=== PATIENT | female | born 1950 | race Caucasian/White ===

== ENCOUNTER 2017-03-23 11:29 | Inpatient (IN) | payer BC, MEDICARE, OTHER ==
[2017-03-23] MEDS ORDERED: SODIUM CHLORIDE 0.9% 1,000 ML IV STA (11:52)
[2017-03-23] MEDS ORDERED: LABETALOL 5 MG/ML VIAL MDV IVP STA ×2 (11:52→12:40)
[2017-03-23] MEDS ORDERED: SODIUM CHLORIDE 0.9% 500 ML IV STA (11:52)
--- NOTE | 2017-03-23 12:08 | ED ---
General Adult HPI - General Chief complaint: Neuro Symptoms/Deficit Stated complaint: POSS CVA, Hx STROKE Time Seen by Provider: 03/23/17 11:51 Source: patient, RN notes reviewed, old records reviewed Mode of arrival: wheelchair Limitations: no limitations - History of Present Illness Initial comments: This is a 66-year-old female ER for evaluation of slurred speech, right arm weakness. Patient has history of high blood pressure, patient is supposedly taking aspirin but does not. History of TIA, CVA which has no neurological deficit. Patient states symptoms occurred while doing some work earlier today. He did resolve upon arrival to emergency room. Patient does admit to being noncompliant with her medications as of late. At this time patient's a symptomatic - Related Data Home Medications Medication Instructions Recorded Confirmed No Known Home Medications [No 03/23/17 03/23/17 Known Home Medications] Allergies Allergy/AdvReac Type Severity Reaction Status Date / Time ibuprofen [From Motrin] Allergy Swelling Verified 03/23/17 12:12 Review of Systems ROS Statement: Those systems with pertinent positive or pertinent negative responses have been documented in the HPI. ROS Other: All systems not noted in ROS Statement are negative. Past Medical History Past Medical History: Coronary Artery Disease (CAD), CVA/TIA, Hyperlipidemia, Hypertension Additional Past Medical History / Comment(s): CVA 2016 History of Any Multi-Drug Resistant Organisms: None Reported Past Surgical History: No Surgical Hx Reported Past Psychological History: No Psychological Hx Reported Smoking Status: Former smoker Past Alcohol Use History: Occasional Past Drug Use History: None Reported - Past Family History Mother Family Medical History: Congestive Heart Failure (CHF), Diabetes Mellitus, Hypertension Father History Unknown: Yes General Exam - General Exam Comments Initial Comments: NIH of 0 Limitations: no limitations General appearance: alert, in no apparent distress Head exam: Present: atraumatic, normocephalic, normal inspection Eye exam: Present: normal appearance, PERRL, EOMI. Absent: scleral icterus, conjunctival injection, periorbital swelling ENT exam: Present: normal exam, mucous membranes moist Neck exam: Present: normal inspection. Absent: tenderness, meningismus, lymphadenopathy Respiratory exam: Present: normal lung sounds bilaterally. Absent: respiratory distress, wheezes, rales, rhonchi, stridor Cardiovascular Exam: Present: regular rate, normal rhythm, normal heart sounds. Absent: systolic murmur, diastolic murmur, rubs, gallop, clicks GI/Abdominal exam: Present: soft, normal bowel sounds. Absent: distended, tenderness, guarding, rebound, rigid Extremities exam: Present: normal inspection, full ROM, normal capillary refill. Absent: tenderness, pedal edema, joint swelling, calf tenderness Back exam: Present: normal inspection Neurological exam: Present: alert, oriented X3, CN II-XII intact Psychiatric exam: Present: normal affect, normal mood Skin exam: Present: warm, dry, intact, normal color. Absent: rash Course Vital Signs 03/23/17 03/23/17 03/23/17 11:36 12:02 12:43 Temperature 97.4 F L Pulse Rate 93 79 Respiratory 18 18 Rate Blood Pressure 219/100 229/105 198/91 O2 Sat by Pulse 96 99 Oximetry 03/23/17 03/23/17 13:41 14:20 Temperature Pulse Rate 74 67 Respiratory 18 16 Rate Blood Pressure 162/76 159/77 O2 Sat by Pulse 94 L 93 L Oximetry - Reevaluation(s) Reevaluation #1: 03/23/17 14:43 Patient had recurrent episode of slurred speech here in the ER EKG Findings - EKG Comments: EKG Findings:: EKG shows normal sinus rhythm rate of 78, MO 144, QRS 100, QTC 433 Medical Decision Making - Medical Decision Making 66 female ER for evaluation of slurred speech, right hand weakness. Patient will be admitted for nerve neurological evaluation, blood pressure control, evaluation by neurology - Lab Data Result diagrams: 03/23/17 11:50 03/23/17 11:50 Lab Results 03/23/17 03/23/17 03/23/17 Range/Units 11:50 11:50 11:50 WBC 6.9 (3.8-10.6) k/uL RBC 3.78 L (3.80-5.40) m/uL Hgb 12.6 (11.4-16.0) gm/dL Hct 38.1 (34.0-46.0) % MCV 100.6 H (80.0-100.0) fL MCH 33.2 (25.0-35.0) pg MCHC 33.0 (31.0-37.0) g/dL RDW 14.1 (11.5-15.5) % Plt Count 371 (150-450) k/uL Neutrophils % 63 % Lymphocytes % 25 % Monocytes % 7 % Eosinophils % 1 % Basophils % 1 % Neutrophils # 4.4 (1.3-7.7) k/uL Lymphocytes # 1.7 (1.0-4.8) k/uL Monocytes # 0.5 (0-1.0) k/uL Eosinophils # 0.1 (0-0.7) k/uL Basophils # 0.0 (0-0.2) k/uL Macrocytosis Slight PT (9.0-12.0) sec INR (<1.2) APTT (22.0-30.0) sec Sodium 140 (137-145) mmol/L Potassium 4.3 (3.5-5.1) mmol/L Chloride 103 (98-107) mmol/L Carbon Dioxide 28 (22-30) mmol/L Anion Gap 9 mmol/L BUN 18 H (7-17) mg/dL Creatinine 0.69 (0.52-1.04) mg/dL Est GFR (MDRD) Af Amer >60 (>60 ml/min/1.73 sqM) Est GFR (MDRD) Non-Af >60 (>60 ml/min/1.73 sqM) Glucose 95 (74-99) mg/dL Calcium 9.5 (8.4-10.2) mg/dL Total Bilirubin 0.5 (0.2-1.3) mg/dL AST 25 (14-36) U/L ALT 30 (9-52) U/L Alkaline Phosphatase 67 (38-126) U/L Total Creatine Kinase 149 H (30-135) U/L CK-MB (CK-2) 2.8 H* (0.0-2.4) ng/mL CK-MB (CK-2) Rel Index 1.9 Troponin I <0.012 (0.000-0.034) ng/mL Total Protein 7.0 (6.3-8.2) g/dL Albumin 4.3 (3.5-5.0) g/dL 03/23/17 Range/Units 11:50 WBC (3.8-10.6) k/uL RBC (3.80-5.40) m/uL Hgb (11.4-16.0) gm/dL Hct (34.0-46.0) % MCV (80.0-100.0) fL MCH (25.0-35.0) pg MCHC (31.0-37.0) g/dL RDW (11.5-15.5) % Plt Count (150-450) k/uL Neutrophils % % Lymphocytes % % Monocytes % % Eosinophils % % Basophils % % Neutrophils # (1.3-7.7) k/uL Lymphocytes # (1.0-4.8) k/uL Monocytes # (0-1.0) k/uL Eosinophils # (0-0.7) k/uL Basophils # (0-0.2) k/uL Macrocytosis PT 9.6 (9.0-12.0) sec INR 0.9 (<1.2) APTT 22.2 (22.0-30.0) sec Sodium (137-145) mmol/L Potassium (3.5-5.1) mmol/L Chloride (98-107) mmol/L Carbon Dioxide (22-30) mmol/L Anion Gap mmol/L BUN (7-17) mg/dL Creatinine (0.52-1.04) mg/dL Est GFR (MDRD) Af Amer (>60 ml/min/1.73 sqM) Est GFR (MDRD) Non-Af (>60 ml/min/1.73 sqM) Glucose (74-99) mg/dL Calcium (8.4-10.2) mg/dL Total Bilirubin (0.2-1.3) mg/dL AST (14-36) U/L ALT (9-52) U/L Alkaline Phosphatase (38-126) U/L Total Creatine Kinase (30-135) U/L CK-MB (CK-2) (0.0-2.4) ng/mL CK-MB (CK-2) Rel Index Troponin I (0.000-0.034) ng/mL Total Protein (6.3-8.2) g/dL Albumin (3.5-5.0) g/dL - Radiology Data Radiology results: report reviewed (Chest x-ray, CT brain negative for acute disease), image reviewed Disposition Clinical Impression: TIA (transient ischemic attack), Hypertension Disposition: ADMITTED IP TO THIS [facility] Condition: Fair Referrals: Jay Galaviz MD [Primary Care Provider] - 1-2 days
[2017-03-23 12:13] LABS: Basophils % (A) 1 %; CH 32.6; CHCM 32.6; Eosinophils # (A) 0.1 k/uL (0-0.7); Eosinophils % (A) 1 %; HCT 38.1 % (34.0-46.0); HDW 2.08; HGB 12.6 gm/dL (11.4-16.0); Luc # (Auto) 0.22; Luc % (Auto) 3; Lymphocytes # (A) 1.7 k/uL (1.0-4.8); Lymphocytes % (A) 25 %; MCH 33.2 pg (25.0-35.0); MCV 100.6 fL (80.0-100.0); Macrocytosis Slight; Mean Platelet Volume 7.8; Monocytes # (A) 0.5 k/uL (0-1.0); Monocytes % (A) 7 %; Neutrophils # (A) 4.4 k/uL (1.3-7.7); Neutrophils % (A) 63 %; RBC 3.78 m/uL (3.80-5.40); RDW 14.1 % (11.5-15.5); WBC 6.9 k/uL (3.8-10.6); WBC (Perox) 6.96
[2017-03-23 12:20] LABS: ALT 30 U/L (9-52); AST 25 U/L (14-36); Alkaline Phosphatase 67 U/L (38-126); Anion Gap 9 mmol/L; Blood Urea Nitrogen 18 mg/dL (7-17); Calcium 9.5 mg/dL (8.4-10.2); Carbon Dioxide 28 mmol/L (22-30); Chloride 103 mmol/L (98-107); Glucose 95 mg/dL (74-99); Non-African American GFR(MDRD) >60 (>60 ml/min/1.73 sqM); Potassium 4.3 mmol/L (3.5-5.1); Sodium 140 mmol/L (137-145); Total Bilirubin 0.5 mg/dL (0.2-1.3)
[2017-03-23 12:27] LABS: INR 0.9 (<1.2); Partial Thromboplastin Time 22.2 sec (22.0-30.0); Prothrombin Time 9.6 sec (9.0-12.0)
[2017-03-23 12:28] LABS: Creatine Kinase 149 U/L (30-135)
[2017-03-23 12:40] LABS: Troponin I <0.012 ng/mL (0.000-0.034)
[2017-03-23] MEDS ORDERED: ASPIRIN 325 MG TAB PO STA (12:40)
[2017-03-23 12:43] LABS: Creatine Kinase MB 2.8 ng/mL (0.0-2.4)
--- NOTE | 2017-03-23 12:53 | CT ---
EXAMINATION TYPE: CT brain wo con DATE OF EXAM: 03/23/2017 COMPARISON: Previous study dated 10/20/2015. HISTORY: Rt arm weakness CT DLP: 1082 mGycm Automated exposure control for dose reduction was used. FINDINGS: Central structures are midline. There is no evidence of hydrocephalus. There is mild, diffuse periven tricular white matter lucency compatible with chronic ischemic change. There is no acute focal lesion , mass effect or midline shift. I do not see evidence of intracranial blood. Visualized portions of the paranasal sinuses and mastoids are clear. No depressed skull fracture is s een. IMPRESSION: 1. NO ACUTE INTRACRANIAL ABNORMALITY. 2. MILD, CHRONIC WHITE MATTER ISCHEMIC CHANGE.
--- NOTE | 2017-03-23 13:58 | XR ---
EXAMINATION TYPE: XR chest 2V DATE OF EXAM: 03/23/2017 COMPARISON: 10/20/2015 INDICATION: Altered mental status CVA weakness TECHNIQUE: Frontal and lateral views of the chest are obtained. FINDINGS: The heart size is normal. The pulmonary vasculature is normal. The lungs are clear. IMPRESSION: 1. No acute pulmonary process.
[2017-03-23] MEDS ORDERED: hydrALAZINE HCL 20 MG/ML 1 ML VIAL IVP PRN (14:36)
--- NOTE | 2017-03-23 17:13 | US ---
EXAMINATION TYPE: US carotid duplex BILAT DATE OF EXAM: 03/23/2017 COMPARISON: NONE CLINICAL HISTORY: Stenosis. TIA, weakness right arm EXAM MEASUREMENTS: RIGHT: Peak Systolic Velocity (PSV) cm/sec ----- Right CCA: 75.7 ----- Right ICA: 385.1 ----- Right ECA: 106.2 ICA/CCA ratio: 5.1 RIGHT: End Diastole cm/sec ----- Right CCA: 18.6 ----- Right ICA: 99.3 ----- Right ECA: 25.4 LEFT: Peak Systolic Velocity (PSV) cm/sec ----- Left CCA: 81.2 ----- Left ICA: 91.9 ----- Left ECA: 100.0 ICA/CCA ratio: 1.1 LEFT: End Diastole cm/sec ----- Left CCA: 23.0 ----- Left ICA: 27.3 ----- Left ECA: 14.4 VERTEBRALS (direction of flow): Right Vertebral: Antegrade Left Vertebral: Antegrade Severe plaque noted right bifurcation. Moderate plaque left bifurcation. Increased velocities right I CA IMPRESSION: There is antegrade flow in the vertebral arteries. There is elevated right internal helton tid artery velocity that suggests more than 70% stenosis. Images suggest close to 50% stenosis in the left internal carotid artery. There is no significant change compared to old exam. Criteria for Assigning % of Stenosis / Diameter reduction (Estimation based on the indirect measurements of the internal carotid artery velocities (ICA PSV). 1. Normal (no stenosis)=ICA PSV < 125 cm/s: ratio < 2.0: ICA EDV<40 cm/s. 2. Less than 50% stenosis=ICA PSV < 125 cm/s: ratio < 2.0: ICA EDV<40 cm/s. 3. 50 to 69% stenosis=ICA PSV of 125 to 230 cm/s: ration 2.0 ? 4.0: ICA EDV 40-100 cm/s. 4. Greater than 70% stenosis to near occlusion= ICA PSV > 230 cm/s: ratio > 4.0: ICA EDV > 100 cm/s. 5. Near occlusion= ICA PSV velocities may be low or undetectable: variable ratio and ICA EDV. 6. Total occlusion=unable to detect flow.
[2017-03-23] MEDS: ATENOLOL 25 MG TAB PO SCH (17:25)
[2017-03-23 17:36] LABS: Cholesterol 187 mg/dL (<200); HDL Cholesterol 87 mg/dL (40-60); Triglycerides 93 mg/dL (<150)
[2017-03-23] MEDS: SODIUM CHLORIDE 0.9% 1,000 ML IV SCH (18:31)
--- NOTE | 2017-03-23 18:54 | P.CNNES ---
History of Present Illness Consult date: 03/23/17 Reason for Consult: Patient with right arm weakness and TIA. History of Present Illness: This patient is a 66-year-old right-handed white female who was in her usual state of health until earlier today. 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 Apparently her right arm dropped to her side and she could not lift it up to get to the handle of the vacuum bottle cleaner. She was quite concerned as this has happened to her previously about a year ago for which she was admitted to hospital for workup of TIA versus stroke. Patient states that she has not been very compliant in terms of medications and treatment of her other medical problems. She apparently was not taking any medications due to the cost of the medications. She was able to contact the international trade teacher of the home who was in the other room. The international trade teacher recommended that she should go to the hospital to have this further evaluated. Patient states that the right arm was quite weak and stayed that way for at least 5 minutes in duration. She also began slurring her speech. This was also noted by the homeowner. Once again the homeowner insisted that she should go to the emergency room. She did contact her daughter and she was brought into the emergency room at [facility]. She was seen by Dr. Johnson in the emergency room. She was sent for a computed tomography scan of the brain which revealed no acute intracranial abnormality. There was mild and chronic white matter ischemic changes noted. Patient was started on 1 aspirin and admitted to the hospital. Patient states her symptoms have resolved. She did have a second episode of slurring of her speech in the ER prior to admission to the medical floor today. The patient's clinical history is consistent with probable left hemispheric TIA. We have recommended she undergo a complete stroke evaluation. Neurology is now been consulted for further evaluation and recommendations. Review of Systems Constitutional: Denies chills, Denies fever Eyes: denies blurred vision, denies pain Ears, nose, mouth and throat: Denies headache, Denies sore throat Cardiovascular: Denies chest pain, Denies shortness of breath Respiratory: Denies cough Gastrointestinal: Denies abdominal pain, Denies diarrhea, Denies nausea, Denies vomiting Genitourinary: Denies dysuria, Denies hematuria Musculoskeletal: Denies myalgias Integumentary: Denies pruritus, Denies rash Neurological: Reports change in mentation, Reports change in speech, Reports paresthesias, Reports tingling, Denies numbness, Denies weakness Psychiatric: Denies anxiety, Denies depression Endocrine: Denies fatigue, Denies weight change Past Medical History Past Medical History: CVA/TIA, Hyperlipidemia, Hypertension Additional Past Medical History / Comment(s): CVA 2016,"brain anuerysm" History of Any Multi-Drug Resistant Organisms: None Reported Past Surgical History: Tubal Ligation Past Anesthesia/Blood Transfusion Reactions: No Reported Reaction Smoking Status: Former smoker - Past Family History Mother Family Medical History: Congestive Heart Failure (CHF), Diabetes Mellitus, Hypertension Father History Unknown: Yes Medications and Allergies Home Medications Medication Instructions Recorded Confirmed Type No Known Home Medications [No 03/23/17 03/23/17 History Known Home Medications] Allergies Allergy/AdvReac Type Severity Reaction Status Date / Time ibuprofen [From Motrin] Allergy Swelling Verified 03/23/17 12:12 Physical Examination - Vital Signs Vital Signs: Vital Signs Temp Pulse Pulse Resp BP BP Pulse Ox 03/23/17 16:20 74 16 189/88 94 L 03/23/17 15:20 96.4 F L 71 16 187/87 96 03/23/17 15:05 97.9 F 72 16 147/78 93 L 03/23/17 14:20 67 16 159/77 93 L 03/23/17 13:41 74 18 162/76 94 L 03/23/17 12:43 79 18 198/91 99 03/23/17 12:02 229/105 03/23/17 11:36 97.4 F L 93 18 219/100 96 Intake and Output 03/23/17 03/23/17 03/23/17 06:59 14:59 22:59 Other: Weight 57.606 kg Patient Weight 03/24/17 06:59 Weight 57.606 kg - Constitutional General appearance: average body habitus, cooperative - EENT EENT: PERRL, mucous membranes moist - Respiratory Respiratory: lungs clear, normal breath sounds - Cardiovascular Cardiovascular: regular rate, normal S1, normal S2 Extremities: no peripheral edema bilaterally - Gastrointestinal Gastrointestinal: normoactive bowel sounds - Integumentary Integumentary: normal - Neurologic Cranial nerve examination: PERRL, EOMI, VFF, V1/V2/V3 grossly intact, face symmetric, tongue midline, intact gag reflex, intact corneal reflex, normal palatal elevation Speech examination: intact Sensorimotor examination: intact Detailed motor examination: grossly full strength in all extremities Motor examination - right side: 5/5: biceps, triceps, wrist flexion, wrist extension, treasury manager, hip flexors, knee extensors, dorsiflexion, toe extension (EHL) , plantarflexion Motor examination - left side: 5/5: biceps, triceps, wrist flexion, wrist extension, treasury manager, hip flexors, knee extensors, dorsiflexion, toe extension (EHL) , plantarflexion Detailed sensory examination: intact Reflex and gait examination: intact Reflexes: 1+: ankle, bicep, knee, tricep - Musculoskeletal Musculoskeletal: no pain - Psychiatric Psychiatric: mood/affect appropriate, cooperative Results - Laboratory Findings CBC and BMP: 03/23/17 11:50 03/23/17 11:50 Abnormal Lab Findings: Abnormal Labs 03/23/17 03/23/17 03/23/17 11:50 11:50 11:50 RBC 3.78 L MCV 100.6 H BUN 18 H Total Creatine Kinase 149 H CK-MB (CK-2) 2.8 H* Assessment and Plan (1) TIA (transient ischemic attack) Status: Acute Code(s): G45.9 - TRANSIENT CEREBRAL ISCHEMIC ATTACK, UNSPECIFIED (2) Hyperlipidemia Status: Acute Code(s): E78.5 - HYPERLIPIDEMIA, UNSPECIFIED (3) Hypertension Status: Acute Code(s): I10 - ESSENTIAL (PRIMARY) HYPERTENSION (4) COPD (chronic obstructive pulmonary disease) Status: Acute Code(s): J44.9 - CHRONIC OBSTRUCTIVE PULMONARY DISEASE, UNSPECIFIED Plan: This patient is a 66-year-old right-handed white female who 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 She was reaching for the vacuum bottle cleaner and noted that she could not move her right arm. She is right-handed and she knew that something was not right. At about the same time she began having difficulty expressing her self with her speech. Her speech was also noted by the homeowner is being slurred. The entire episode lasted about 5 minutes in duration. She was advised to go directly to the emergency room for further evaluation by the home international trade teacher. Patient was seen in the ER by Dr. Johnson. She was noted to have some speech impairment in the ER. Her right hand weakness had shown significant improvement. She was subsequent admitted to the hospital for further evaluation. Her neurological exam at this time is nonfocal. Clinical history is consistent and highly suggestive of a acute left hemispheric TIA. We have recommended a complete stroke evaluation for the patient. Would recommend starting her on one aspirin daily for secondary stroke prevention. Her overall prognosis at this time remains guarded. Time with Patient: Greater than 30
[2017-03-23] MEDS: HEPARIN SODIUM,PORCINE 5,000 UNIT/ML 1 ML VIAL SQ SCH (21:27)
[2017-03-23] MEDS: FAMOTIDINE 20 MG TAB PO SCH (21:27)
[2017-03-23] MEDS: LISINOPRIL 10 MG TAB PO SCH (21:27)
--- NOTE | 2017-03-23 22:14 | HP ---
HISTORY OF PRESENT ILLNESS: Carolina Herrera is a 66-year-old female who presented to the ED when she developed right upper extremity weakness. This had been associated with some slurring of her speech. This lasted for 5 or 10 minutes. She came into the ED and was noted to have another episode of slurring of her speech. She subsequently was admitted for further evaluation. She denied any fever, chills or rigors but previously has had a stroke about a year ago. The patient was unable to afford her medications and stopped her medications about 6 months ago. Past medical history is positive for: 1. Coronary artery disease. 2. CVA, I believe in 2015. 3. Hyperlipidemia. 4. Hypertension. Past medical history is negative for COPD or asthma. FAMILY HISTORY: Positive for CHF, diabetes mellitus and hypertension in her mother. She does not know much about her father's medical history. SOCIAL HISTORY: Patient used to smoke cigarettes. She quit smoking about a year ago. She does not drink alcohol excessively. She was on no medications. ALLERGIES: MOTRIN, which causes swelling. On physical examination, blood pressure is 189/88, respiratory rate is 16, pulse rate 74, temperature 96.4. Oxygen saturation on room air is 94%. HEENT reveals pupils that are equal. No jugular venous distention. No carotid bruit. Chest is clear. Cardiovascular system is in S1, S2. Abdomen is soft. There is no pedal edema. Neurologically patient has subtle right upper extremity and right lower extremity weakness. Speech is normal. White count is 6.9, hemoglobin 12.6. Sodium 140, potassium 4.3, chloride 103, bicarb 28. BUN 18, creatinine 0.69. CK of 149, MB of 2.8. Troponin of less than 0.012. Chest x-ray shows no acute pulmonary process. Brain CT shows mild chronic white matter ischemic change. IMPRESSION AT THIS TIME: 1. Transient ischemic attack. 2. Possible early cerebrovascular accident. 3. Accelerated hypertension. At this point in time, would start the patient on beta blockers. Would keep her on IV hydralazine, keep her on aspirin, have her seen by Neurology. Check neuro checks on her. Increase her activity level. Depending on how she does, we shall make further changes to her care. She will be kept on GI and DVT prophylaxis as well. BRINDA
[2017-03-24 07:20] LABS: Cholesterol 167 mg/dL (<200); HDL Cholesterol 66 mg/dL (40-60); Triglycerides 107 mg/dL (<150)
[2017-03-24] MEDS: ATENOLOL 25 MG TAB PO SCH (08:41)
[2017-03-24] MEDS: FAMOTIDINE 20 MG TAB PO SCH (08:41)
[2017-03-24] MEDS: LISINOPRIL 10 MG TAB PO SCH (08:42)
[2017-03-24] MEDS: SODIUM CHLORIDE 0.9% 1,000 ML IV SCH ×2 (08:42→11:34)
[2017-03-24] MEDS: HEPARIN SODIUM,PORCINE 5,000 UNIT/ML 1 ML VIAL SQ SCH (08:42)
[2017-03-24] MEDS ORDERED: ASPIRIN 325 MG TAB PO SCH (09:00)
[2017-03-24 09:38] VITALS: BP 147/67; PULSE 74; RESP 17; TEMP 97.1
--- NOTE | 2017-03-24 12:50 | P.PN ---
Subjective This patient is a 66 year old female admitted yesterday with possible TIA. The patient presented with symptoms of right upper extremity weakness and some slurring of her speech. 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 The home hide mill worker noticed that she was slurring her speech as well. She was brought into the emergency room at [facility] for further evaluation. She was seen by Dr. Johnson and was sent for a computed tomography scan of the brain. A CAT scan of the brain was negative for acute stroke. There was mild to chronic white matter ischemic changes noted. Patient was started on 1 aspirin and admitted to the hospital. Apparently she has not been compliant in taking her regular medications at home. She states that the cost of the medications made her stop taking medications on a regular basis. She has not been followed up in her primary care physician's office for several months as well. The patient's symptoms of right arm numbness and weakness had resolved yesterday evening. She has not had any recurrence of right arm symptoms today. Her speech is also back to baseline. We have recommended a complete stroke evaluation for the patient. The patient had a carotid Doppler ultrasound study done which revealed elevated right internal carotid artery velocities suggesting 70% stenosis. The left ICA was 50% stenosis. Apparently there was no significant change compared to previous carotid Doppler study. Patient was started on aspirin. She is being closely monitored for hypertensive urgency. Her blood pressure seems to be doing better today. Would continue to increase her activity as tolerates. Possible discharge home soon. Objective - Vital Signs Vital signs: Vital Signs Temp 97.1 F L 03/24/17 08:00 Pulse 74 03/24/17 08:00 Resp 17 03/24/17 08:00 BP 147/67 03/24/17 08:00 Pulse Ox 95 03/24/17 08:00 Intake & Output 03/23/17 03/24/17 03/24/17 18:59 06:59 18:59 Intake Total 400 280 Balance 400 280 Weight 57.606 kg 57.9 kg Intake: Intake, IV Titration 400 100 Amount Sodium Chloride 0.9% 1, 400 000 ml @ 100 mls/hr IV . Q10H ÁLVARO Rx#:[id number] Sodium Chloride 0.9% 1, 100 000 ml @ 100 mls/hr IV . Q10H STA Rx#:[id number] Oral 180 Other: # Voids 1 - Exam Physical examination: PHYSICAL EXAMINATION: Patient is resting comfortably in bed. VITAL SIGNS: Blood pressure is [147/67]. Heart rate is [74]. Respiration is [17] . Temperature is [97.1]. HEENT: Head is atraumatic, neck is supple, there were no carotid bruits. CHEST: Lungs are clear to auscultation and percussion. CARDIAC: S1, S2 normal rate and rhythm. There is no murmur. ABDOMEN: Soft and nontender. Bowel sounds are present. EXTREMITIES: There is no pedal edema. Peripheral pulses are present. Neurological examination: Patient has a nonfocal neurological examination today. - Labs CBC & Chem 7: 03/23/17 11:50 03/23/17 11:50 Labs: Abnormal Lab Results - Last 24 Hours (Table) 03/23/17 03/23/17 03/23/17 Range/Units 11:50 11:50 11:50 BUN 18 H (7-17) mg/dL Total Creatine Kinase 149 H (30-135) U/L CK-MB (CK-2) 2.8 H* (0.0-2.4) ng/mL HDL Cholesterol 87 H (40-60) mg/dL 03/24/17 Range/Units 06:29 BUN (7-17) mg/dL Total Creatine Kinase (30-135) U/L CK-MB (CK-2) (0.0-2.4) ng/mL HDL Cholesterol 66 H (40-60) mg/dL Assessment and Plan (1) TIA (transient ischemic attack) Status: Acute Code(s): G45.9 - TRANSIENT CEREBRAL ISCHEMIC ATTACK, UNSPECIFIED (2) Hyperlipidemia Status: Acute Code(s): E78.5 - HYPERLIPIDEMIA, UNSPECIFIED (3) Hypertension Status: Acute Code(s): I10 - ESSENTIAL (PRIMARY) HYPERTENSION (4) COPD (chronic obstructive pulmonary disease) Status: Acute Code(s): J44.9 - CHRONIC OBSTRUCTIVE PULMONARY DISEASE, UNSPECIFIED Plan: This patient is a 66-year-old female who was admitted to hospital yesterday with symptoms of right arm weakness and slurred speech. Her clinical history was consistent with acute left hemispheric TIA. She was admitted to hospital for further evaluation. Renée when computed tomography scan of the brain yesterday the results of which are noted above. CAT scan failed to reveal any evidence of acute stroke. She underwent a carotid Doppler ultrasound which reveals right ICA stenosis of 70% and left ICA stenosis of 50%. She was started on aspirin therapy. Would recommend increase her activity as tolerates. She has had no further recurrence of right-sided arm weakness or slurred speech since admission. Laboratory testing reveals her serum cholesterol to be 167. May consider starting her on Lipitor. We will continue to follow her progress closely during this admission.
--- NOTE | 2017-03-24 13:42 | DS ---
Carolina Herrera is a 66-year-old female who presented to the ED at [facility] with right-sided weakness along with slurring of her speech. She has a known history of hypertension and stopped all her medications about 6 months ago. She subsequently was seen in the ED. Her symptoms had resolved but subsequently recurred while she was in the ED. She was admitted for further evaluation. On physical examination, her vitals were stable. She was afebrile. Her chest was clear. Cardiovascular system revealed an S1, S2. Abdomen was soft. There was no edema. There was subtle decrease in strength of the right upper and lower extremity. Patient was admitted to the hospital, subsequently started on anti-hypertensive medications, including an MARIPOSA inhibitor and a beta ines. She was kept on aspirin. Her blood pressure is better controlled today. Her cholesterol was checked and was normal. LDL was normal. The HDL was high. Triglycerides were normal. Patient was seen by Neurology. Carotid Doppler was done which showed evidence of non-critical carotid disease. Patient is being discharged home today. DISCHARGE DIAGNOSES: 1. Transient ischemic attack. 2. Accelerated hypertension. Her condition is stable. Her diet is cardiac, activities as tolerated. On physical examination today, she has no focal deficits. Her blood pressure is 147/67, respiratory rate 17, pulse rate 74, temperature 97.1. Oxygen saturation on room air is 95%. HEENT is unremarkable. Chest is clear. Cardiovascular system is in S1, S2. Abdomen is soft. There is no edema. There are no focal deficits. Patient will be discharged home. Her discharge medications will be: 1. Vasotec 10 mg p.o. b.i.d. 2. Metoprolol 25 mg p.o. b.i.d. 3. Aspirin 325 mg daily. Patient will follow up with Dr. Jay Galaviz within one week's time. [facility] CENTERGeorges
--- NOTE | 2017-03-27 11:04 | ECHOF ---
Referral Reason:Thrombus MEASUREMENTS -------- HEIGHT: 162.6 cm WEIGHT: 57.6 kg BP: 163/81 RVIDd: 2.2 cm (< 3.3) IVSd: 1.1 cm (0.6 - 1.1) LVIDd: 5.4 cm (3.9 - 5.3) LVPWd: 1.1 cm (0.6 - 1.1) IVSs: 1.8 cm LVIDs: 4.3 cm LVPWs: 0.9 cm LA Diam: 3.6 cm (2.7 - 3.8) LAESV Index (A-L): 29.64 ml/m Ao Diam: 2.4 cm (2.0 - 3.7) AV Cusp: 1.7 cm (1.5 - 2.6) LA Diam: 3.9 cm (2.7 - 3.8) MV EXCURSION: 16.659 mm (> 18.000) MV EF SLOPE: 55 mm/s (70 - 150) EPSS: 1.1 cm MV E Tono: 0.78 m/s MV DecT: 227 ms MV A Tono: 0.91 m/s MV E/A Ratio: 0.85 RAP: 5.00 mmHg RVSP: 29.28 mmHg FINDINGS -------- Sinus rhythm. This was a technically adequate study. The left ventricular size is normal. There is borderline concentric left ventricular hypertrophy. Overall left ventricular systolic function is mild-moderately impaired with, an EF between 40 - 45 %. Inferior Hypokinesis Basal septal hypokinesis The right ventricle is normal in size. LA is midly dilated 29-33ml/m2. The right atrial size is normal. The aortic valve is trileaflet, and appears structurally normal. No aortic stenosis or regurgitation. The mitral valve is normal. Mild mitral regurgitation is present. Mild tricuspid regurgitation present. There is no evidence of pulmonary hypertension. The right ventricular systolic pressure, as measured by Doppler, is 29.28mmHg. There is no pulmonic regurgitation present. The aortic root size is normal. There is no pericardial effusion. CONCLUSIONS -------- 1. There is borderline concentric left ventricular hypertrophy. 2. There is no pulmonic regurgitation present. 3. The aortic root size is normal. 4. There is no pericardial effusion. 5. Overall left ventricular systolic function is mild-moderately impaired with, an EF between 40 - 45 %. 6. Inferior Hypokinesis 7. Basal septal hypokinesis 8. LA is midly dilated 29-33ml/m2. 9. The aortic valve is trileaflet, and appears structurally normal. No aortic stenosis or regurgitation. 10. Mild mitral regurgitation is present. 11. Mild tricuspid regurgitation present. 12. There is no evidence of pulmonary hypertension. SEED COLLECTOR: Leelee Mart RDCS
== END 2017-03-24 13:10 | disposition home or self-care (01) | DRG 69 ==
LOC: EC 11:29 → 6SEL 14:30
PROVIDERS: ADMIT Family Medicine; ATTEND Family Medicine
DX: G45.9 Transient cerebral ischemic attack, unspecified (principal); I10 Essential (primary) hypertension; E78.5 Hyperlipidemia, unspecified; I65.23 Occlusion and stenosis of bilateral carotid arteries; I16.0 Hypertensive urgency; T46.4X6A Underdosing of angiotensin-converting-enzyme inhibitors, initial encounter; T39.016A Underdosing of aspirin, initial encounter; T44.7X6A Underdosing of beta-adrenoreceptor antagonists, initial encounter; R29.700 NIHSS score 0; R20.0 Anesthesia of skin; R47.81 Slurred speech; J44.9 Chronic obstructive pulmonary disease, unspecified; I25.10 Atherosclerotic heart disease of native coronary artery without angina pectoris; R53.1 Weakness; Z87.891 Personal history of nicotine dependence; Z82.49 Family history of ischemic heart disease and other diseases of the circulatory system; Z86.73 Personal history of transient ischemic attack (TIA), and cerebral infarction without residual deficits; Z83.3 Family history of diabetes mellitus; Z86.79 Personal history of other diseases of the circulatory system; Z88.6 Allergy status to analgesic agent; Z98.51 Tubal ligation status; Z91.120 Patient's intentional underdosing of medication regimen due to financial hardship; Z91.14 Patient's other noncompliance with medication regimen; Z79.899 Other long term (current) drug therapy; Z79.82 Long term (current) use of aspirin
CPT/HCPCS: 36415; 70450; 71020; 80053; 80061; 82550; 82553; 84484; 85025; 85610; 85730; 93005; 93306; 93880

== ENCOUNTER 2017-03-24 20:16 | Inpatient (IN) | payer BC ==
[2017-03-24] MEDS ORDERED: SODIUM CHLORIDE 0.9% 1,000 ML IV STA (21:19)
[2017-03-24 21:37] LABS: Basophils % (A) 1 %; CH 32.2; CHCM 32.2; Eosinophils # (A) 0.2 k/uL (0-0.7); Eosinophils % (A) 2 %; HCT 35.4 % (34.0-46.0); HDW 2.07; HGB 11.6 gm/dL (11.4-16.0); Luc # (Auto) 0.17; Luc % (Auto) 2; Lymphocytes # (A) 1.6 k/uL (1.0-4.8); Lymphocytes % (A) 21 %; MCHC 32.8 g/dL (31.0-37.0); MCV 100.5 fL (80.0-100.0); Macrocytosis Slight; Mean Platelet Volume 8.4; Monocytes # (A) 0.7 k/uL (0-1.0); Monocytes % (A) 9 %; Neutrophils # (A) 4.9 k/uL (1.3-7.7); Neutrophils % (A) 65 %; RBC 3.52 m/uL (3.80-5.40); RDW 13.8 % (11.5-15.5); WBC 7.5 k/uL (3.8-10.6); WBC (Perox) 7.49
[2017-03-24 21:45] LABS: INR 0.9 (<1.2)
[2017-03-24 21:46] LABS: Partial Thromboplastin Time 22.7 sec (22.0-30.0); Prothrombin Time 9.4 sec (9.0-12.0)
[2017-03-24 21:57] LABS: Creatine Kinase 175 U/L (30-135)
--- NOTE | 2017-03-24 21:57 | XR ---
EXAMINATION TYPE: XR chest 2V DATE OF EXAM: 03/24/2017 COMPARISON: 03/23/2017 HISTORY: Altered mental status TECHNIQUE: Frontal and lateral views of the chest are obtained. FINDINGS: Heart and mediastinum are within normal limits. Lungs are clear. There is no heart failure . Costophrenic angles are clear. Bony thorax is intact. There are chest leads. IMPRESSION: No active cardiopulmonary disease. No change.
--- NOTE | 2017-03-24 22:00 | CT ---
EXAMINATION TYPE: CT brain wo con for TPA DATE OF EXAM: 03/24/2017 COMPARISON: Yesterday HISTORY: slurred speech, just released from hospital yesterday for stroke CT DLP: 1121 mGycm Automated exposure control for dose reduction was used. FINDINGS: Ventricles have normal size. There is no mass effect nor midline shift. There is no sign of intracran ial hemorrhage. There is a 2 x 1 cm area of hypodensity in the left posterior frontal lobe. There is subtle hypodensity in the anterior left internal capsule. The calvarium is intact. IMPRESSION: THERE IS EVIDENCE FOR ISCHEMIC CHANGE INVOLVING LEFT POSTERIOR FRONTAL LOBE CORTEX AND ANTERIOR LEFT INTERNAL CAPSULE THAT IS UNCHANGED COMPARED TO YESTERDAY. NO HEMORRHAGE.
[2017-03-24 22:01] LABS: ALT 32 U/L (9-52); AST 25 U/L (14-36); Alkaline Phosphatase 73 U/L (38-126); Anion Gap 10 mmol/L; Blood Urea Nitrogen 15 mg/dL (7-17); Carbon Dioxide 21 mmol/L (22-30); Chloride 109 mmol/L (98-107); Glucose 103 mg/dL (74-99); Non-African American GFR(MDRD) >60 (>60 ml/min/1.73 sqM); Potassium 4.5 mmol/L (3.5-5.1); Sodium 140 mmol/L (137-145); Total Bilirubin 0.3 mg/dL (0.2-1.3); Total Protein 6.3 g/dL (6.3-8.2)
[2017-03-24 22:11] LABS: Troponin I <0.012 ng/mL (0.000-0.034)
[2017-03-24 22:12] LABS: Creatine Kinase MB 3.1 ng/mL (0.0-2.4)
--- NOTE | 2017-03-24 22:26 | ED ---
Neuro HPI - General Chief Complaint: Neuro Symptoms/Deficit Stated Complaint: confusion Time Seen by Provider: 03/24/17 21:12 Source: patient Mode of arrival: wheelchair Limitations: no limitations - History of Present Illness Is the patient presenting with stroke symptoms?: No Last Known Well Date: 03/24/17 Last Known Well Time: 14:59 Initial Comments: 66 years old female was just discharged from the hospital this morning and around 3 PM she developed slurred speech persisted off and on till now, speech is clear she denies any headaches, no blurred vision no slurred speech no she denies any unilateral weakness of upper or lower extremity. She denies any chest pain or shortness of breath or abdominal pain no frequency urgency dysuria - Related Data Home Medications: Previous Rx's Medication Instructions Recorded Aspirin 325 mg PO DAILY #30 tab 03/24/17 Enalapril [Vasotec] 10 mg PO BID #60 tablet 03/24/17 Metoprolol Tartrate [Lopressor] 25 mg PO BID #60 tablet 03/24/17 Allergies/Adverse Reactions: Allergies Allergy/AdvReac Type Severity Reaction Status Date / Time ibuprofen [From Motrin] Allergy Swelling Verified 03/23/17 12:12 Review of Systems ROS Statement: Those systems with pertinent positive or pertinent negative responses have been documented in the HPI. ROS Other: All systems not noted in ROS Statement are negative. General Exam - General Exam Comments Initial Comments: General: The patient is awake and alert, in no distress, and does not appear acutely ill. GCS is 15 Skin: Skin is warm and dry and no rashes or lesions are noted. Eye: Pupils are equal, round and reactive to light, extra-ocular movements are intact; there is normal conjunctiva bilaterally. Ears, nose, mouth and throat: There are moist mucous membranes and no oral lesions. Neck: The neck is supple, there is no tenderness no signs of meningitis Cardiovascular: There is a regular rate and rhythm. No murmur, rub or gallop is appreciated. Respiratory: To auscultation bilateral, no wheezing no rhonchi no distress respiratory frye noticed Gastrointestinal: Soft, non-distended, non-tender abdomen without masses or organomegaly noted. There is no rebound or guarding present. Bowel sounds are unremarkable. Back: There is no tenderness to palpation in the midline. There is no obvious deformity. Musculoskeletal: Normal ROM, no tenderness, There is no pedal edema. There is no calf tenderness or swelling. No cords were appreciated. Neurological: CN II-XII intact, Cranial nerves III through XII are intact. There are no obvious motor or sensory deficits. Coordination appears grossly intact. Speech is normal. At the time of exam her symptoms had totally resolved Psychiatric: Cooperative, appropriate mood & affect, normal judgment. Limitations: no limitations Stroke MDM - Lab Data Result diagrams: 03/24/17 21:05 03/24/17 21:05 Lab Results 03/24/17 03/24/17 03/24/17 Range/Units 21:05 21:05 21:05 WBC 7.5 (3.8-10.6) k/uL RBC 3.52 L (3.80-5.40) m/uL Hgb 11.6 (11.4-16.0) gm/dL Hct 35.4 (34.0-46.0) % MCV 100.5 H (80.0-100.0) fL MCH 33.0 (25.0-35.0) pg MCHC 32.8 (31.0-37.0) g/dL RDW 13.8 (11.5-15.5) % Plt Count 322 (150-450) k/uL Neutrophils % 65 % Lymphocytes % 21 % Monocytes % 9 % Eosinophils % 2 % Basophils % 1 % Neutrophils # 4.9 (1.3-7.7) k/uL Lymphocytes # 1.6 (1.0-4.8) k/uL Monocytes # 0.7 (0-1.0) k/uL Eosinophils # 0.2 (0-0.7) k/uL Basophils # 0.0 (0-0.2) k/uL Macrocytosis Slight PT (9.0-12.0) sec INR (<1.2) APTT (22.0-30.0) sec Sodium 140 (137-145) mmol/L Potassium 4.5 (3.5-5.1) mmol/L Chloride 109 H (98-107) mmol/L Carbon Dioxide 21 L (22-30) mmol/L Anion Gap 10 mmol/L BUN 15 (7-17) mg/dL Creatinine 0.60 (0.52-1.04) mg/dL Est GFR (MDRD) Af Amer >60 (>60 ml/min/1.73 sqM) Est GFR (MDRD) Non-Af >60 (>60 ml/min/1.73 sqM) Glucose 103 H (74-99) mg/dL Calcium 9.0 (8.4-10.2) mg/dL Total Bilirubin 0.3 (0.2-1.3) mg/dL AST 25 (14-36) U/L ALT 32 (9-52) U/L Alkaline Phosphatase 73 (38-126) U/L Total Creatine Kinase 175 H (30-135) U/L CK-MB (CK-2) 3.1 H* (0.0-2.4) ng/mL CK-MB (CK-2) Rel Index 1.8 Troponin I <0.012 (0.000-0.034) ng/mL Total Protein 6.3 (6.3-8.2) g/dL Albumin 3.8 (3.5-5.0) g/dL 03/24/17 Range/Units 21:05 WBC (3.8-10.6) k/uL RBC (3.80-5.40) m/uL Hgb (11.4-16.0) gm/dL Hct (34.0-46.0) % MCV (80.0-100.0) fL MCH (25.0-35.0) pg MCHC (31.0-37.0) g/dL RDW (11.5-15.5) % Plt Count (150-450) k/uL Neutrophils % % Lymphocytes % % Monocytes % % Eosinophils % % Basophils % % Neutrophils # (1.3-7.7) k/uL Lymphocytes # (1.0-4.8) k/uL Monocytes # (0-1.0) k/uL Eosinophils # (0-0.7) k/uL Basophils # (0-0.2) k/uL Macrocytosis PT 9.4 (9.0-12.0) sec INR 0.9 (<1.2) APTT 22.7 (22.0-30.0) sec Sodium (137-145) mmol/L Potassium (3.5-5.1) mmol/L Chloride (98-107) mmol/L Carbon Dioxide (22-30) mmol/L Anion Gap mmol/L BUN (7-17) mg/dL Creatinine (0.52-1.04) mg/dL Est GFR (MDRD) Af Amer (>60 ml/min/1.73 sqM) Est GFR (MDRD) Non-Af (>60 ml/min/1.73 sqM) Glucose (74-99) mg/dL Calcium (8.4-10.2) mg/dL Total Bilirubin (0.2-1.3) mg/dL AST (14-36) U/L ALT (9-52) U/L Alkaline Phosphatase (38-126) U/L Total Creatine Kinase (30-135) U/L CK-MB (CK-2) (0.0-2.4) ng/mL CK-MB (CK-2) Rel Index Troponin I (0.000-0.034) ng/mL Total Protein (6.3-8.2) g/dL Albumin (3.5-5.0) g/dL Past Medical History Past Medical History: CVA/TIA, Hyperlipidemia, Hypertension Additional Past Medical History / Comment(s): CVA 2016,"brain anuerysm" History of Any Multi-Drug Resistant Organisms: None Reported Past Surgical History: Tubal Ligation Past Anesthesia/Blood Transfusion Reactions: No Reported Reaction Past Psychological History: No Psychological Hx Reported Smoking Status: Former smoker - Past Family History Mother Family Medical History: Congestive Heart Failure (CHF), Diabetes Mellitus, Hypertension Father History Unknown: Yes Course Vital Signs 03/24/17 03/24/17 03/24/17 20:44 21:06 22:08 Temperature 97.2 F L 98 F Pulse Rate 76 65 62 Respiratory 18 16 16 Rate Blood Pressure 192/79 144/68 123/58 O2 Sat by Pulse 97 99 99 Oximetry - Reevaluation(s) Reevaluation #1: 03/24/17 22:25 She was discharged from the wound today then she developed a TIA symptoms which persisted off and on for 6 hours and discussed with the Dr. Alvarez is covering Dr. Galaviz he agreed with admission patient be admitted to Dr. Galaviz service and Dr. Ochoa be consulted he is familiar with her. Disposition Clinical Impression: TIA (transient ischemic attack) Disposition: ADMITTED IP TO THIS HOSP Condition: Good Referrals: Jay Galaviz MD [Primary Care Provider] - 1-2 days
[2017-03-24 23:41] VITALS: BMI 21.8
[2017-03-24] MEDS: SODIUM CHLORIDE 0.9% 1,000 ML IV SCH (23:55)
[2017-03-25 07:00] LABS: Cholesterol 156 mg/dL (<200); HDL Cholesterol 63 mg/dL (40-60)
[2017-03-25] MEDS: ASPIRIN 325 MG TAB PO SCH (09:32)
[2017-03-25] MEDS: LISINOPRIL 20 MG TAB PO SCH ×2 (09:33→21:01)
[2017-03-25] MEDS: METOPROLOL TARTRATE 25 MG TAB PO SCH ×2 (09:33→21:00)
[2017-03-25] MEDS: SODIUM CHLORIDE 0.9% 1,000 ML IV SCH ×2 (09:36→22:24)
--- NOTE | 2017-03-25 14:30 | HP ---
Carolina Herrera is a 66 year old female who presented to the ED with slurring of speech and some right sided weakness. She had recently been seen here, admitted to the hospital. She, at that time, had not taken any of her medications and had accelerated hypertension. She was treated and her blood pressure was under control. She was asymptomatic and discharged home yesterday. She came back in and her symptoms had recurred. At this time, she is asymptomatic, does not have any headache. Does not have any weakness or slurring of her speech. She was admitted because of recurrence of her symptoms. Her past medical history is positive for hypertension, CVA, coronary artery disease, hyperlipidemia, hypertension. Negative for COPD or asthma. Family history is positive for CHF, diabetes mellitus and hypertension in her mother. She does not know much about her father's medical history. Social history: The patient used to smoke cigarettes. She quit smoking about a year ago. She does not drink alcohol excessively. The patient is ALLERGIC TO MOTRIN. On physical examination, she was lying in bed. She was comfortable but somewhat anxious. Her blood pressure is 147/77. Respiratory rate 17. Pulse rate 68. Temperature 97.9. O2 sat on room air is 96%. HEENT: Unremarkable. Chest is clear. Cardiovascular: Revealed S1, S2. Abdomen is soft. There is no pedal edema. There are no focal neurological deficits. White count is 7.5, hemoglobin 11.6, sodium 140, potassium 4.5, chloride 109, bicarb 21. IMPRESSION: 1. Transient ischemic attack. 2. Uncontrolled hypertension. 3. Coronary artery disease. Keep her on antihypertensive medications and aspirin. Add GI and DVT prophylaxis. Increase her activity level. Have her seen by neurology as well as vascular surgery. Depending on how she does, we shall make further changes to her care. BRINDA
--- NOTE | 2017-03-25 14:37 | CONS ---
Date of consultation: 03/25/2017 This is a 66 year old female, she came to the ER, with history of slurred speech. The patient has been admitted and had a CT scan of the head which showed ischemic changes in the left posterior frontal lobe. The patient had a similar episode about three days ago when she came in and at that time, they found the patient has a left carotid 50%, right carotid 70% stenosis. The patient had some evidence of ( ) on the right arm when she came the first time but this time she had no motor deficit on the right arm. The patient still had a similar episode about a year ago when she had a similar episode with speech problem and right arm weakness. She was transferred to [facility]. At that time, they found the patient had cerebral aneurysm. No history of amaurosis fugax. No history of motor weakness. No history of seizure. Medical history: History of hypertension, stopped taking medications for some time. No history of diabetes. Surgical history: The patient had tubal ligation. On examination, the patient was seen in her room. Her neck is supple. No bruit appreciated. Chest was clear to auscultation. First and second sounds normal. Abdomen is soft. Brachial, radial and femoral pulses are present. The patient has ( ) motor function. The patient had an ultrasound which showed right carotid 70%, left 50% and the patient has CT showed some hypodensity noted in the left posterior frontal lobe. The patient was seen by neurology and she is scheduled to have MRI of the brain. At this point, her symptoms are from left side carotid, so only about 50% stenosis. The patient on antiplatelet therapy. We will wait for MRI report and follow with you. BRINDA
--- NOTE | 2017-03-25 15:16 | P.CNNES ---
History of Present Illness Consult date: 03/25/17 Reason for Consult: Patient admitted with slurred speech and history of TIA. History of Present Illness: This patient is a 66-year-old right-handed white female who was just discharged from the [facility] yesterday after being admitted with an episode of possible left hemispheric TIA. Her initial presentation to the hospital 2 days ago was one of right-sided arm weakness and slurring of her speech. 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 The episode lasted about 15 minutes and resolved. She was advised to come in to the hospital which she did yesterday. Gentleman his computed tomography scan of the brain which revealed nonspecific changes. She was subsequent admitted to the hospital. She underwent a carotid Doppler ultrasound yesterday which revealed 70% stenosis of the right internal carotid artery and 50% stenosis of the left carotid artery. She was discharged home on aspirin. Apparently she was home for only about 2 hours yesterday when family members noted that she had again episodes of recurrent slurring of her speech. This occurred and lasted for about 5 minutes in duration. She was advised to go back to the emergency room which she did late last night. She was seen in the emergency room by Dr. Fernandez. A repeat computed tomography scan of the brain was done yesterday evening which revealed some subtle hypodensity in the left frontal lobe. This was a subtle hypodensity and it was not noted on the computed tomography scan of the brain performed on 03/23/2017. We have recommended the patient undergo an MRI of the brain for further evaluation. The patient states she is now back to baseline. She has had no further episodes of speech impairment since admission to the hospital. We did request a vascular surgery consultation to evaluate her recent carotid Doppler results. We will await their further recommendations. Patient will continue on 1 aspirin daily for secondary stroke prevention. Depending on her MRI results further recommendations will be given. The patient is now admitted and neurology has been consulted for further evaluation and recommendations. Review of Systems Constitutional: Denies chills, Denies fever Eyes: denies blurred vision, denies pain Ears, nose, mouth and throat: Denies headache, Denies sore throat Cardiovascular: Denies chest pain, Denies shortness of breath Respiratory: Denies cough Gastrointestinal: Denies abdominal pain, Denies diarrhea, Denies nausea, Denies vomiting Genitourinary: Denies dysuria, Denies hematuria Musculoskeletal: Denies myalgias Integumentary: Denies pruritus, Denies rash Neurological: Reports change in speech, Denies numbness, Denies weakness Psychiatric: Denies anxiety, Denies depression Endocrine: Denies fatigue, Denies weight change Past Medical History Past Medical History: CVA/TIA, Hyperlipidemia, Hypertension Additional Past Medical History / Comment(s): CVA 2015,"brain anuerysm" History of Any Multi-Drug Resistant Organisms: None Reported Past Surgical History: Tubal Ligation Past Anesthesia/Blood Transfusion Reactions: No Reported Reaction Past Psychological History: No Psychological Hx Reported Additional Psychological History / Comment(s): pt is ,lives on ss. lives alone has a pet bird. no medical equipment, no home care services. Smoking Status: Former smoker Past Alcohol Use History: Occasional Additional Past Alcohol Use History / Comment(s): started smoking 1963, smoked 2ppd,quit -2015. Past Drug Use History: None Reported - Past Family History Mother Family Medical History: Congestive Heart Failure (CHF), Diabetes Mellitus, Hypertension Father History Unknown: Yes Medications and Allergies Allergies Allergy/AdvReac Type Severity Reaction Status Date / Time ibuprofen [From Motrin] Allergy Swelling Verified 03/25/17 11:49 Physical Examination - Vital Signs Vital Signs: Vital Signs Temp Pulse Pulse Resp BP BP Pulse Ox 03/25/17 08:00 97.7 F 72 18 143/78 94 L 03/25/17 04:00 97.9 F 68 17 147/77 96 03/25/17 00:00 97.8 F 70 17 138/70 97 03/24/17 22:52 97.7 F 69 18 156/79 94 L 03/24/17 22:08 62 16 123/58 99 03/24/17 21:06 98 F 65 16 144/68 99 03/24/17 20:44 97.2 F L 76 18 192/79 97 Intake and Output 03/24/17 03/25/17 03/25/17 22:59 06:59 14:59 Intake Total 760 1040 Balance 760 1040 Intake: Intake, IV Titration 400 800 Amount Sodium Chloride 0.9% 1, 400 800 000 ml @ 100 mls/hr IV . Q10H ÁLVARO Rx#:[id number] Oral 360 240 Other: # Voids 1 2 Weight 57.606 kg 57.8 kg 57.8 kg Patient Weight 03/26/17 06:59 Weight 57.8 kg - Constitutional General appearance: average body habitus, cooperative - EENT EENT: PERRL, mucous membranes moist - Respiratory Respiratory: lungs clear, normal breath sounds - Cardiovascular Cardiovascular: regular rate, normal S1, normal S2 Extremities: no peripheral edema bilaterally - Gastrointestinal Gastrointestinal: normoactive bowel sounds - Integumentary Integumentary: normal - Neurologic Cranial nerve examination: PERRL, EOMI, VFF, V1/V2/V3 grossly intact, face symmetric, tongue midline, intact gag reflex, intact corneal reflex, normal palatal elevation Speech examination: intact Sensorimotor examination: intact Detailed motor examination: grossly full strength in all extremities Motor examination - right side: 5/5: biceps, triceps, wrist flexion, wrist extension, concrete boom pump operator, hip flexors, knee extensors, dorsiflexion, toe extension (EHL) , plantarflexion Motor examination - left side: 5/5: biceps, triceps, wrist flexion, wrist extension, concrete boom pump operator, hip flexors, knee extensors, dorsiflexion, toe extension (EHL) , plantarflexion Detailed sensory examination: intact Reflex and gait examination: intact Reflexes: 1+: ankle, bicep, knee, tricep - Musculoskeletal Musculoskeletal: no pain - Psychiatric Psychiatric: mood/affect appropriate, cooperative Results - Laboratory Findings CBC and BMP: 03/24/17 21:05 03/24/17 21:05 Abnormal Lab Findings: Abnormal Labs 03/24/17 03/24/17 03/24/17 21:05 21:05 21:05 RBC 3.52 L MCV 100.5 H Chloride 109 H Carbon Dioxide 21 L Glucose 103 H Total Creatine Kinase 175 H CK-MB (CK-2) 3.1 H* HDL Cholesterol 03/25/17 05:52 RBC MCV Chloride Carbon Dioxide Glucose Total Creatine Kinase CK-MB (CK-2) HDL Cholesterol 63 H Assessment and Plan (1) Left acute arterial ischemic stroke, MCA (middle cerebral artery) Status: Acute Code(s): I63.512 - CEREB INFRC D/T UNSP OCCLS OR STENOS OF LEFT MID CEREB ART (2) TIA (transient ischemic attack) Status: Acute Code(s): G45.9 - TRANSIENT CEREBRAL ISCHEMIC ATTACK, UNSPECIFIED (3) COPD (chronic obstructive pulmonary disease) Status: Acute Code(s): J44.9 - CHRONIC OBSTRUCTIVE PULMONARY DISEASE, UNSPECIFIED (4) Hypertension Status: Acute Code(s): I10 - ESSENTIAL (PRIMARY) HYPERTENSION Plan: This patient is a 66-year-old female who was admitted to hospital today for recurrent episode of slurred speech. Patient was just discharged from hospital yesterday afternoon after being evaluated for possible left hemispheric TIA. She underwent a carotid Doppler ultrasound as well as an initial computed tomography scan of the brain done on 03/23/2017. This CAT scan revealed no acute intracranial abnormality. Her carotid Doppler study revealed 70% stenosis of the right internal carotid artery and 50% stenosis of the left internal carotid artery. She was placed on aspirin and discharged home. After 2-3 hours of being home she began to have recurrent symptoms of slurred speech. She was advised to return to the emergency room. Patient was seen in the ER at [facility] by Dr. Fernandez. She underwent a repeat computed tomography scan of the brain which reveals a subtle hypodensity in the left frontal lobe. She was recommended admission for MRI of the brain and further evaluation for left MCA stroke. Patient's symptoms have completely resolved and she has had no further recurrence of slurred speech. We have recommended MRI of the brain as well as a vascular surgery consultation regarding her carotid artery stenosis from her recent carotid Doppler ultrasound. Patient is to be maintained on aspirin for secondary stroke prevention. Depending on her MRI results further recommendations will be given. Overall prognosis at this time remains guarded. We will continue close neurological follow-up with this patient during this admission. Time with Patient: Greater than 30
[2017-03-25] MEDS: FAMOTIDINE 20 MG TAB PO SCH (21:00)
[2017-03-25] MEDS ORDERED: FUROSEMIDE 10 MG/ML 4 ML VIAL ONE (21:04)
[2017-03-25 21:06] LABS: Glucose,Whole Blood 99 mg/dL (75-99)
[2017-03-25] MEDS ORDERED: LORazepam 2 MG/ML SYRINGE IV STA (21:17)
[2017-03-25] MEDS ORDERED: LORazepam 2 MG/ML SYRINGE ONE (21:18)
[2017-03-25 21:27] LABS: Basophils # (A) 0.1 k/uL (0-0.2); Basophils % (A) 1 %; CH 31.9; CHCM 30.6; Eosinophils # (A) 0.2 k/uL (0-0.7); Eosinophils % (A) 2 %; HDW 2.11; HGB 16.9 gm/dL (11.4-16.0); Hypochromasia Slight; Luc # (Auto) 0.29; Luc % (Auto) 3; Lymphocytes # (A) 4.2 k/uL (1.0-4.8); Lymphocytes % (A) 45 %; MCH 32.2 pg (25.0-35.0); MCHC 30.7 g/dL (31.0-37.0); MCV 104.9 fL (80.0-100.0); Macrocytosis Slight; Mean Platelet Volume 8.8; Monocytes # (A) 0.7 k/uL (0-1.0); Monocytes % (A) 8 %; Neutrophils # (A) 3.9 k/uL (1.3-7.7); Neutrophils % (A) 42 %; RBC 5.25 m/uL (3.80-5.40); RDW 14.2 % (11.5-15.5); WBC 9.2 k/uL (3.8-10.6); WBC (Perox) 9.62
[2017-03-25 21:35] LABS: Anion Gap 18 mmol/L; Blood Urea Nitrogen 9 mg/dL (7-17); Calcium 9.6 mg/dL (8.4-10.2); Carbon Dioxide 16 mmol/L (22-30); Chloride 110 mmol/L (98-107); Glucose 152 mg/dL (74-99); Non-African American GFR(MDRD) >60 (>60 ml/min/1.73 sqM); Sodium 144 mmol/L (137-145)
--- NOTE | 2017-03-25 21:35 | XR ---
EXAMINATION TYPE: XR chest 1V portable DATE OF EXAM: 03/25/2017 COMPARISON: Yesterday HISTORY: Short of breath TECHNIQUE: Single frontal view of the chest is obtained. FINDINGS: There is pulmonary alveolar edema. There is slight blunting of costophrenic angles. There are chest leads. There is some coalescent density in both lower lobes. IMPRESSION: Moderately severe pulmonary edema consistent with acute heart failure. This is new abimbola red to yesterday.
[2017-03-25] MEDS: hydrALAZINE HCL 20 MG/ML 1 ML VIAL IVP STA ×2 (21:37→23:54)
[2017-03-25 21:40] LABS: Potassium 5.9 mmol/L (3.5-5.1)
[2017-03-25 21:59] LABS: ABG HCO3 22 mmol/L (21-25); ABG PCO2 60 mmHg (35-45); ABG PH 7.18 (7.35-7.45); ABG PO2 135 mmHg (83-108); ABG TCO2 23 mmol/L (19-24)
[2017-03-25 22:00] LABS: ABG Base Excess -5.6 mmol/L
[2017-03-25] MEDS ORDERED: FUROSEMIDE 10 MG/ML 4 ML VIAL IV STA (22:08)
[2017-03-25] MEDS: HEPARIN SODIUM,PORCINE 5,000 UNIT/ML 1 ML VIAL SQ SCH (22:26)
[2017-03-26] MEDS: FAMOTIDINE 20 MG TAB PO SCH ×3 (00:01→20:50)
[2017-03-26] MEDS: METOPROLOL TARTRATE 25 MG TAB PO SCH ×3 (00:01→20:49)
[2017-03-26] MEDS: LISINOPRIL 20 MG TAB PO SCH ×3 (00:01→20:49)
[2017-03-26] MEDS: SODIUM CHLORIDE 0.9% 1,000 ML IV SCH ×2 (04:21→16:33)
[2017-03-26] MEDS ORDERED: LORazepam 2 MG/ML SYRINGE IV PRN (04:22)
[2017-03-26 06:08] LABS: CH 32.1; CHCM 31.7; HCT 38.9 % (34.0-46.0); HDW 2.08; MCH 33.2 pg (25.0-35.0); MCHC 32.6 g/dL (31.0-37.0); MCV 101.6 fL (80.0-100.0); Macrocytosis Slight; Mean Platelet Volume 7.7; RBC 3.83 m/uL (3.80-5.40); RDW 13.6 % (11.5-15.5); WBC 9.1 k/uL (3.8-10.6)
[2017-03-26 06:13] LABS: Glucose,Whole Blood 105 mg/dL (75-99)
[2017-03-26 06:20] LABS: Anion Gap 9 mmol/L; Blood Urea Nitrogen 13 mg/dL (7-17); Calcium 8.7 mg/dL (8.4-10.2); Carbon Dioxide 25 mmol/L (22-30); Chloride 107 mmol/L (98-107); Glucose 112 mg/dL (74-99); Non-African American GFR(MDRD) >60 (>60 ml/min/1.73 sqM); Potassium 4.4 mmol/L (3.5-5.1); Sodium 141 mmol/L (137-145)
[2017-03-26 06:27] LABS: HGB 12.7 gm/dL (11.4-16.0)
[2017-03-26] MEDS ORDERED: FUROSEMIDE 10 MG/ML 4 ML VIAL IV ONE (08:00)
[2017-03-26] MEDS: HEPARIN SODIUM,PORCINE 5,000 UNIT/ML 1 ML VIAL SQ SCH ×2 (09:56→20:49)
[2017-03-26] MEDS: ASPIRIN 325 MG TAB PO SCH (09:56)
--- NOTE | 2017-03-26 10:30 | MR ---
MR brain without contrast HISTORY: TIA Multiplanar multisequence imaging through the brain correlated to prior MR brain 10/22/2015 There is no restricted diffusion to suggest subacute ischemia. There is no hemorrhage, hydrocephalus. The corpus callosum, pituitary, cervical medullary junction, cerebellopontine angles are stable. Hyp erintensity on inversion recovery and T2-weighted sequences again noted within the deep white matter, vin, some stable cortical hyperintensity also noted. There are normal vascular flow voids, the sacc ular aneurysm described on previous report is not well seen on this exam.. The orbits show a symmetri c appearance. Paranasal sinuses and mastoid air cells are unremarkable. IMPRESSION: Stable signal abnormalities within the brain likely due to chronic small vessel ischemia. No acute finding is evident.
--- NOTE | 2017-03-26 12:00 | XR ---
EXAMINATION TYPE: XR chest 1V portable DATE OF EXAM: 03/26/2017 COMPARISON: Prior chest x-ray 03/25/2017 HISTORY: Pulmonary edema TECHNIQUE: Single frontal view of the chest is obtained. FINDINGS: There is improvement in the interstitium and prominence of the central vascularity, improv ed aeration is noted in the perihilar locations. No pneumothorax or evident effusion. There are overl dyan cardiac leads. Cardiac mediastinal silhouette is not significantly changed. Patient is rotated. IMPRESSION: Improvement in patient's volume status, aeration.
[2017-03-26] MEDS ORDERED: RX INFO: IV CONTRAST WAS GIVEN 1 EACH MISC MISCELLANE PRN (16:16)
--- NOTE | 2017-03-26 17:10 | P.PN ---
Progress Note - Text 66-year-old white female, patient had 2 episode of TIA affecting the speech patient had a complete workup including CT of the head Eschen had a MRI of the brain which showed a age-related small vessel disease patient had ultrasound done on first admission and that showed right carotid 70% left carotid 50% during the stay in the hospital patient underwent ultrasound was stable no aneurysmal deficit and no TIA noted since patient had a 2 episode of TIA we will planning to do CTA of the carotid and further recommendation will be made after the CTA of the carotid her motor function are normal both lower and upper extremity
--- NOTE | 2017-03-26 18:22 | CT ---
EXAMINATION TYPE: CT angio neck DATE OF EXAM: 03/26/2017 HISTORY: TIA with slurred speech. COMPARISON: NONE CT DLP: 172.00 mGycm. Automated Exposure Control for Dose Reduction was Utilized. TECHNIQUE: CTA scan of the neck is performed with IV Contrast, patient injected with 65 mL of Omnipa que 350, axial images are obtained, coronal and sagittal reformatted images are reviewed. Three-D rec onstructed images are created on an independent workstation and reviewed. FINDINGS: Carotid/Vascular Structures: There is mild mixed plaque in aortic arch. There is normal three-vessel origin from aortic arch without significant plaque or stenosis. The right common carotid artery shows normal origin from right brachiocephalic artery. There is mild mixed plaque in the mid to distal rig ht common carotid artery. There is more severe mixed plaque at right carotid bulb extending into prox imal internal carotid artery. Significant stenosis is felt present. Lumen diameter is narrowed up to 1.2 mm near raw data image 471 with reconstitution up to 4.0 mm seen superior to this. This gives kristina culated diameter narrowing of 70%. Computer analysis shows narrowing up to 0.4 mm with reconstitution up to 3.6 mm superiorly. Computer analysis is 88% diameter narrowing and 98% area narrowing but this is felt falsely measured or elevated due to extensive calcified plaque. Right external carotid arter y is patent without significant stenosis. There is no significant plaque or stenosis along course of left common carotid artery. There is moder ate mixed plaque at left carotid bulb extending into proximal internal carotid artery. No significant stenosis is evident. There is some calcified plaque in supraclinoid segment of distal internal carot id arteries bilaterally. There is patent left external carotid artery without significant plaque or s tenosis. There is dominant left vertebral artery. Vertebral arteries are patent to basilar junction. Other: There is moderate to severe emphysematous change in visualized lung apices. IMPRESSION: Hemodynamically significant stenosis in proximal right internal carotid artery is present , I feel diameter stenosis is 70% on personally analysis of raw data images. Computer estimate 88% di ameter narrowing. Neurosurgical or vascular surgical consultation advised.
--- NOTE | 2017-03-26 20:49 | P.PN ---
Subjective This patient is a 66-year-old female who was admitted to hospital with recurrent TIA symptoms with slurred speech and right arm weakness. Patient was seen by vascular surgery yesterday and is being evaluated for carotid artery stenosis and disease. Since the patient had recurrent episodes of TIA suggesting left hemispheric stroke was recommended for her to undergo an MRI of the brain. MRI of the brain was completed today and reveals chronic small vessel ischemic changes. No evidence of acute stroke was evident on this MRI. Patient also underwent a CTA angiogram which revealed hemodynamically significant stenosis in the proximal right internal carotid artery. Stenosis was 80%. Vascular surgery consultation was recommended. Patient was seen today by Dr. Houston. We're waiting this further recommendations regarding this CTA angiogram. Neurologically she remains intact. We will continue close neurological follow-up for the patient during this admission and will await further recommendations from vascular surgery. Objective - Vital Signs Vital signs: Vital Signs Temp 97.5 F L 03/26/17 16:00 Pulse 80 03/26/17 16:00 Resp 18 03/26/17 16:00 BP 139/84 03/26/17 16:00 Pulse Ox 93 L 03/26/17 16:00 Intake & Output 03/26/17 03/26/17 03/27/17 06:59 18:59 06:59 Intake Total 1220 580 Output Total 1400 Balance -180 580 Weight 56.8 kg Intake: IV 980 100 Sodium Chloride 0.9% 1, 980 100 000 ml @ 100 mls/hr IV . Q10H ÁLVARO Rx#:[id number] Oral 240 480 Output: Urine 1400 Other: # Voids 4 - Exam Physical examination: PHYSICAL EXAMINATION: Patient is resting comfortably in bed. VITAL SIGNS: Blood pressure is [139/84]. Heart rate is [80]. Respiration is [18] . Temperature is [97.5]. HEENT: Head is atraumatic, neck is supple, there were no carotid bruits. CHEST: Lungs are clear to auscultation and percussion. CARDIAC: S1, S2 normal rate and rhythm. There is no murmur. ABDOMEN: Soft and nontender. Bowel sounds are present. EXTREMITIES: There is no pedal edema. Peripheral pulses are present. Neurological examination: Patient has a nonfocal neurological examination today. - Labs CBC & Chem 7: 03/26/17 05:43 03/26/17 05:41 Labs: Abnormal Lab Results - Last 24 Hours (Table) 03/25/17 03/25/17 03/25/17 Range/Units 21:11 21:11 21:11 Hgb 16.9 H D (11.4-16.0) gm/dL Hct 55.0 H (34.0-46.0) % MCV 104.9 H (80.0-100.0) fL MCHC 30.7 L (31.0-37.0) g/dL D-Dimer 1.19 H (<0.60) mg/L FEU ABG pH (7.35-7.45) ABG pCO2 (35-45) mmHg ABG pO2 (83-108) mmHg ABG O2 Saturation (94-97) % Potassium 5.9 H (3.5-5.1) mmol/L Chloride 110 H (98-107) mmol/L Carbon Dioxide 16 L (22-30) mmol/L Glucose 152 H (74-99) mg/dL POC Glucose (mg/dL) (75-99) mg/dL 03/25/17 03/26/17 03/26/17 Range/Units 21:48 05:41 05:43 Hgb (11.4-16.0) gm/dL Hct (34.0-46.0) % MCV 101.6 H (80.0-100.0) fL MCHC (31.0-37.0) g/dL D-Dimer (<0.60) mg/L FEU ABG pH 7.18 L* (7.35-7.45) ABG pCO2 60 H (35-45) mmHg ABG pO2 135 H (83-108) mmHg ABG O2 Saturation 98.0 H (94-97) % Potassium (3.5-5.1) mmol/L Chloride (98-107) mmol/L Carbon Dioxide (22-30) mmol/L Glucose 112 H (74-99) mg/dL POC Glucose (mg/dL) (75-99) mg/dL 03/26/17 Range/Units 06:10 Hgb (11.4-16.0) gm/dL Hct (34.0-46.0) % MCV (80.0-100.0) fL MCHC (31.0-37.0) g/dL D-Dimer (<0.60) mg/L FEU ABG pH (7.35-7.45) ABG pCO2 (35-45) mmHg ABG pO2 (83-108) mmHg ABG O2 Saturation (94-97) % Potassium (3.5-5.1) mmol/L Chloride (98-107) mmol/L Carbon Dioxide (22-30) mmol/L Glucose (74-99) mg/dL POC Glucose (mg/dL) 105 H (75-99) mg/dL Assessment and Plan (1) Left acute arterial ischemic stroke, MCA (middle cerebral artery) Status: Acute Code(s): I63.512 - CEREB INFRC D/T UNSP OCCLS OR STENOS OF LEFT MID CEREB ART (2) TIA (transient ischemic attack) Status: Acute Code(s): G45.9 - TRANSIENT CEREBRAL ISCHEMIC ATTACK, UNSPECIFIED (3) COPD (chronic obstructive pulmonary disease) Status: Acute Code(s): J44.9 - CHRONIC OBSTRUCTIVE PULMONARY DISEASE, UNSPECIFIED (4) Hypertension Status: Acute Code(s): I10 - ESSENTIAL (PRIMARY) HYPERTENSION Plan: This patient is a 66-year-old female who was admitted to hospital with recurrent symptoms of right sided arm weakness and recurrent episodes of expressive aphasia. She was concerned with recurrent symptoms within 24 hours a discharged recently from the hospital. She underwent a MRI of the brain today which failed to reveal any evidence of acute stroke. She also had a CTA angiogram of the head and neck which results are as noted above. Were waiting further recommendations from vascular surgery in regards to the CTA findings. Patient was seen today by Dr. Houston and we're waiting his recommendations. Patient continues to do well and has had no further recurrent TIA episodes or spells. Specifically she has had no dysarthric speech or expressive aphasia. We will continue close neurological follow-up with this patient during this admission.
--- NOTE | 2017-03-26 22:23 | PN ---
CHIEF COMPLAINT: TIA. HISTORY OF PRESENT ILLNESS: This lady is being further evaluated neurologically at this time. Physical exam will be deferred. IMPRESSION: 1. ? transient ischemic attack or cerebrovascular accident. 2. History of hypertension. 3. History of previous cerebrovascular accident. 4. History of previous myocardial infarction. PLAN: Continue workup and progress activity. BRINAD
--- NOTE | 2017-03-26 22:25 | HP ---
BRIEF ADMITTING NOTE CHIEF COMPLAINT: TIA. HISTORY OF PRESENT ILLNESS: This lady was admitted in my absence. She presented with a TIA and was admitted for further evaluation, which continues. IMPRESSION: Transient ischemic attack. PLAN: Work up possible etiologies for her neurologic event. BRINDA
[2017-03-27] MEDS: SODIUM CHLORIDE 0.9% 1,000 ML IV SCH ×3 (00:37→19:57)
--- NOTE | 2017-03-27 05:54 | EEG ---
DATE OF SERVICE: 03/26/2017 ELECTROENCEPHALOGRAPHIC EXAMINATION REPORT INDICATION FOR EXAMINATION: This patient is an 66-year-old female being evaluated for recurrent TIA with right-sided weakness and slurred speech. AGE: 66. EEG FINDINGS: A routine 21-channel awake, digital EEG recording was accomplished utilizing the 10-20 international system with bipolar and referential montages. The background activity in the most alert resting state consists of a low to medium amplitude, fairly well-developed and well- sustained 7-8 Hz activity over the posterior head regions. This posterior rhythm attenuates to eye opening. There is a small amount of low amplitude 18- 20 Hz beta activity seen maximally over the anterior head regions. Muscle and movement artifact was observed on a few occasions during the tracing. Hyperventilation was not performed. Photic stimulation at flash frequencies of 2-30 Hz produced a minimal occipital driving response. Towards the mid and ( ) portion of the tracing, the patient does drift into spontaneous drowsiness. No epileptiform discharges were seen. IMPRESSION: This EEG is within normal limits for the patient's age. The EEG failed to reveal any focal, lateralized or epileptiform abnormalities. Clinical correlation is recommended. MTDD
[2017-03-27] MEDS: ASPIRIN 325 MG TAB PO SCH (09:48)
[2017-03-27] MEDS: METOPROLOL TARTRATE 25 MG TAB PO SCH ×2 (09:49→19:59)
[2017-03-27] MEDS: HEPARIN SODIUM,PORCINE 5,000 UNIT/ML 1 ML VIAL SQ SCH ×2 (09:49→20:00)
[2017-03-27] MEDS: LISINOPRIL 20 MG TAB PO SCH ×2 (09:49→20:00)
[2017-03-27] MEDS: FAMOTIDINE 20 MG TAB PO SCH ×2 (09:49→19:59)
--- NOTE | 2017-03-27 15:13 | P.PN ---
Progress Note - Text 66 old white female, patient came with there are is speech involvement 2 for the last 1 week during stay in the hospital she had no symptoms patient had MRI of the brain which showed small vessel disease no acute stroke patient had a CT of the carotid which showed right-sided 80% left side normal some plaque formation since the symptom came from the left side involving the speech and right hemiparesis and carotid artery has no significant stenosis we will treat her with antiplatelet therapy we'll watch her very closely and I will discuss with the medicine patient can go home on antiplatelet therapy and then I will follow in office patient will need elective surgery for the right critical stenosis of the carotid artery which is about 80% have discuss the case with Dr. Ochoa and we agreed her left side is normal and her symptom came from most likely from the left side I will follow in my office in 2 weeks
--- NOTE | 2017-03-27 23:23 | P.PN ---
Subjective This patient is a 66-year-old female who was admitted to hospital with recurrent TIA symptoms with slurred speech and right arm weakness. Patient was seen by vascular surgery yesterday and is being evaluated for carotid artery stenosis and disease. Since the patient had recurrent episodes of TIA suggesting left hemispheric stroke was recommended for her to undergo an MRI of the brain. MRI of the brain was completed today and reveals chronic small vessel ischemic changes. No evidence of acute stroke was evident on this MRI. Patient also underwent a CTA angiogram which revealed hemodynamically significant stenosis in the proximal right internal carotid artery. Stenosis was 80%. Vascular surgery consultation was recommended. Patient was seen today by Dr. Houston. We're waiting this further recommendations regarding this CTA angiogram. Neurologically she remains intact. We will continue close neurological follow-up for the patient during this admission and will await further recommendations from vascular surgery. Her CTA angiogram results were reviewed today with Dr. Houston over the phone. He does not feel there is any surgical intervention needed at this time. We will continue close neurological follow-up for this patient for any recurrent symptoms of TIA. Her overall prognosis at this time remains guarded. Objective - Vital Signs Vital signs: Vital Signs Temp 98.9 F 03/27/17 20:00 Pulse 75 03/27/17 20:00 Resp 18 03/27/17 20:00 BP 154/85 03/27/17 20:00 Pulse Ox 98 03/27/17 20:00 Intake & Output 03/27/17 03/27/17 03/28/17 06:59 18:59 06:59 Intake Total 720 Balance 720 Weight 56.8 kg Intake: Oral 720 Other: Voiding Method Toilet Toilet Toilet # Voids 1 2 - Exam Physical examination: PHYSICAL EXAMINATION: Patient is resting comfortably in bed. VITAL SIGNS: Blood pressure is [154/85]. Heart rate is [75]. Respiration is [18] . Temperature is [98.9]. HEENT: Head is atraumatic, neck is supple, there were no carotid bruits. CHEST: Lungs are clear to auscultation and percussion. CARDIAC: S1, S2 normal rate and rhythm. There is no murmur. ABDOMEN: Soft and nontender. Bowel sounds are present. EXTREMITIES: There is no pedal edema. Peripheral pulses are present. Neurological examination: Patient has a nonfocal neurological examination today. - Labs CBC & Chem 7: 03/26/17 05:43 03/26/17 05:41 Assessment and Plan (1) Left acute arterial ischemic stroke, MCA (middle cerebral artery) Status: Acute Code(s): I63.512 - CEREB INFRC D/T UNSP OCCLS OR STENOS OF LEFT MID CEREB ART (2) TIA (transient ischemic attack) Status: Acute Code(s): G45.9 - TRANSIENT CEREBRAL ISCHEMIC ATTACK, UNSPECIFIED (3) COPD (chronic obstructive pulmonary disease) Status: Acute Code(s): J44.9 - CHRONIC OBSTRUCTIVE PULMONARY DISEASE, UNSPECIFIED (4) Hypertension Status: Acute Code(s): I10 - ESSENTIAL (PRIMARY) HYPERTENSION Plan: This patient is a 66-year-old female who was admitted to hospital with recurrent symptoms of right sided arm weakness and recurrent episodes of expressive aphasia. She was concerned with recurrent symptoms within 24 hours a discharged recently from the hospital. She underwent a MRI of the brain today which failed to reveal any evidence of acute stroke. She also had a CTA angiogram of the head and neck which results are as noted above. Were waiting further recommendations from vascular surgery in regards to the CTA findings. Patient was seen today by Dr. Houston and we're waiting his recommendations. Patient continues to do well and has had no further recurrent TIA episodes or spells. Specifically she has had no dysarthric speech or expressive aphasia. Her case was discussed today over the telephone with Dr. Houston. He reviewed the CTA angiogram results and does not feel she requires any surgical intervention. We will continue close monitoring of the patient. Anticipate discharge home soon. We will continue close neurological follow-up with this patient during this admission.
[2017-03-28] MEDS: SODIUM CHLORIDE 0.9% 1,000 ML IV SCH (03:40)
[2017-03-28 04:43] VITALS: RESP 18
[2017-03-28] MEDS: METOPROLOL TARTRATE 25 MG TAB PO SCH (10:16)
[2017-03-28] MEDS: ASPIRIN 325 MG TAB PO SCH (10:16)
[2017-03-28] MEDS: FAMOTIDINE 20 MG TAB PO SCH (10:16)
[2017-03-28] MEDS: LISINOPRIL 20 MG TAB PO SCH (10:16)
[2017-03-28] MEDS: HEPARIN SODIUM,PORCINE 5,000 UNIT/ML 1 ML VIAL SQ SCH (10:16)
[2017-03-28 13:52] VITALS: BP 125/66; PULSE 62; TEMP 98.5
== END 2017-03-28 14:40 | disposition home or self-care (01) | DRG 69 ==
LOC: EC 20:16 → 6SEL 22:43
PROVIDERS: ADMIT Family Medicine; ATTEND Family Medicine
DX: G45.9 Transient cerebral ischemic attack, unspecified (principal); G81.91 Hemiplegia, unspecified affecting right dominant side; I10 Essential (primary) hypertension; R47.01 Aphasia; J44.9 Chronic obstructive pulmonary disease, unspecified; I65.23 Occlusion and stenosis of bilateral carotid arteries; I25.2 Old myocardial infarction; E78.5 Hyperlipidemia, unspecified; R47.81 Slurred speech; R29.700 NIHSS score 0; R94.31 Abnormal electrocardiogram [ECG] [EKG]; I25.10 Atherosclerotic heart disease of native coronary artery without angina pectoris; Z86.73 Personal history of transient ischemic attack (TIA), and cerebral infarction without residual deficits; Z83.3 Family history of diabetes mellitus; Z82.49 Family history of ischemic heart disease and other diseases of the circulatory system; Z87.891 Personal history of nicotine dependence; Z79.899 Other long term (current) drug therapy; Z79.82 Long term (current) use of aspirin; Z86.79 Personal history of other diseases of the circulatory system; Z88.6 Allergy status to analgesic agent; Z98.51 Tubal ligation status
CPT/HCPCS: 36415; 36600; 70450; 70496; 70498; 70551; 71010; 71020; 80048; 80053; 80061; 81003; 82550; 82553; 82805; 84484; 85025; 85027; 85379; 85610; 85730; 93005; 93306; 93880; 94660; 95819; 96360; 96361; 96374; 99285

== ENCOUNTER 2017-03-29 13:00 | Inpatient (IN) | payer BC ==
--- NOTE | 2017-03-29 13:23 | CT ---
EXAMINATION TYPE: CT brain wo con DATE OF EXAM: 03/29/2017 COMPARISON: 03/24/2017 HISTORY: difficulty with speech CT DLP: 927.[address] of the brain was performed. The ventricles, basal cisterns and sulci overlying the cerebral convexities demonstrate mild enlargem ent. Again noted is decreased attenuation in the region of the anterior limb left internal capsule and lef t periventricular left frontal region. Small area of decreased attenuation also stable adjacent to th e right frontal horn. There is no evidence for intracranial hemorrhage or sulcal effacement. There is decreased attenuation about the periventricular white matter and deep white matter of both c erebral hemispheres, compatible with chronic small vessel ischemia. Differential diagnosis does inclu de demyelination. No mass effects are seen.No midline shift. Osseous calvarium is intact. If symptoms persist consider MRI. IMPRESSION: 1. Stable appearance of the brain. Age related atrophic and chronic small vessel ischemic change with out acute intracranial process seen at this time.
[2017-03-29 13:25] LABS: Glucose,Whole Blood 184 mg/dL (75-99)
[2017-03-29 13:39] LABS: Basophils % (A) 0 %; CH 32.3; Eosinophils # (A) 0.1 k/uL (0-0.7); Eosinophils % (A) 1 %; HDW 2.14; Luc # (Auto) 0.28; Luc % (Auto) 3; Lymphocytes # (A) 1.6 k/uL (1.0-4.8); Lymphocytes % (A) 19 %; MCH 32.8 pg (25.0-35.0); MCHC 33.3 g/dL (31.0-37.0); MCV 98.4 fL (80.0-100.0); Monocytes # (A) 0.7 k/uL (0-1.0); Monocytes % (A) 8 %; Neutrophils # (A) 5.8 k/uL (1.3-7.7); Neutrophils % (A) 68 %; RBC 3.65 m/uL (3.80-5.40); RDW 13.4 % (11.5-15.5); WBC 8.5 k/uL (3.8-10.6); WBC (Perox) 9.03
--- NOTE | 2017-03-29 13:42 | CT ---
EXAMINATION TYPE: CT angio head neck DATE OF EXAM: 03/29/2017 COMPARISON: 03/26/2017 HISTORY: difficulty with speech CT DLP: 217.2 mGycm CONTRAST: Performed with IV Contrast, patient injected with 65 mL of Omnipaque 350. Combination Contrast CTA cervical carotids and [place] CTA cervical carotids with 3-D recons truction Contrast CTA of the cervical carotids was performed 3-D reconstruction imaging obtained at a separate workstation. Right carotid system: Mild plaque is seen of the right common carotid artery. There is severe partia lly calcified plaque also noted at the carotid bulb and proximal ICA. Estimated diameter reduction i s approximately 90%. ECA is patent. Right vertebral artery appears unremarkable. Left carotid system: Mild plaque is seen of the left common carotid artery. There is mild soft and c alcified plaque also noted at the carotid bulb and proximal ICS. No significant diameter reduction. ECA is patent. Left vertebral artery appears unremarkable. Incidental emphysematous changes and pleural thickening upper lobes. IMPRESSION: 1. Hemodynamically significant stenosis proximal right ICA estimated at 90% unchanged from prior exam ination. 2. No hemodynamically significant stenosis of the left internal carotid system. CTA [place] with 3-D reconstruction Contrast CTA of the [place] was performed 3-D reconstruction imaging obtained at a separate workstation. There is artifact noted at the level of the intracranial internal carotid arteries which limits evalu ation. There is diminished flow within the right anterior cerebral artery A1 segment. This may be con genital in nature or related to diminished flow. Middle cerebral arteries and straight normal contras t enhancement as does the posterior circulation. I do not see evidence for sizable aneurysm or vascul ar malformation. Please note MRI provides greater sensitivity and specificity. Visualized brain wendy ears grossly unremarkable. IMPRESSION: 1. There is artifact noted at the level of the intracranial internal carotid arteries which limits ev aluation. There is diminished flow within the right anterior cerebral artery A1 segment.
[2017-03-29 13:50] LABS: ALT 51 U/L (9-52); AST 38 U/L (14-36); Alkaline Phosphatase 51 U/L (38-126); Anion Gap 7 mmol/L; Blood Urea Nitrogen 11 mg/dL (7-17); Calcium 8.7 mg/dL (8.4-10.2); Carbon Dioxide 28 mmol/L (22-30); Chloride 101 mmol/L (98-107); Glucose 194 mg/dL (74-99); Non-African American GFR(MDRD) >60 (>60 ml/min/1.73 sqM); Potassium 3.9 mmol/L (3.5-5.1); Sodium 136 mmol/L (137-145); Total Bilirubin 0.5 mg/dL (0.2-1.3); Total Protein 6.3 g/dL (6.3-8.2)
[2017-03-29 13:57] LABS: Prothrombin Time 10.1 sec (9.0-12.0)
--- NOTE | 2017-03-29 14:10 | XR ---
EXAMINATION TYPE: XR chest 1V portable DATE OF EXAM: 03/29/2017 COMPARISON: Chest x-ray from 3 days ago. HISTORY: Altered mental status. TECHNIQUE: Single AP portable frontal upright view of the chest is obtained. FINDINGS: There is chronic reticulonodular parenchymal change without suspicious new focal air space opacity, pleural effusion, or pneumothorax seen. The cardiac silhouette size is stable and upper li mits of normal. The osseous structures are intact. IMPRESSION: Chronic changes without new acute pulmonary process.
[2017-03-29] MEDS ORDERED: ASPIRIN 325 MG TAB PO STA (14:15)
[2017-03-29 14:19] LABS: Creatine Kinase MB 1.2 ng/mL (0.0-2.4); Troponin I 0.012 ng/mL (0.000-0.034)
--- NOTE | 2017-03-29 14:19 | ED ---
General Adult HPI - General Chief complaint: Neuro Symptoms/Deficit Stated complaint: POSS CVA Time Seen by Provider: 03/29/17 13:02 Source: patient, EMS, RN notes reviewed, old records reviewed Mode of arrival: EMS Limitations: no limitations - History of Present Illness Initial comments: This is a 66-year-old female slurred speech, significant recent history of stroke. No chest pain or shortness of breath, no not no other neurological complaint. Patient because of slurred speech is inaccurate historian. Patient states she was admitted to the hospital twice recently for similar complaints, symptoms started 1 hour prior to arrival. Severity scale (1-10): 0 - Related Data Previous Rx's Medication Instructions Recorded Enalapril [Vasotec] 10 mg PO BID #60 tablet 03/24/17 Metoprolol Tartrate [Lopressor] 25 mg PO BID #60 tablet 03/24/17 Aspirin [Children's Aspirin] 81 mg PO DAILY #30 tab.chew 03/28/17 Atorvastatin [Lipitor] 40 mg PO DAILY #30 tablet 03/28/17 Allergies Allergy/AdvReac Type Severity Reaction Status Date / Time ibuprofen [From Motrin] Allergy Swelling Verified 03/25/17 11:49 Review of Systems ROS Statement: Those systems with pertinent positive or pertinent negative responses have been documented in the HPI. ROS Other: All systems not noted in ROS Statement are negative. Past Medical History Past Medical History: CVA/TIA, Hyperlipidemia, Hypertension Additional Past Medical History / Comment(s): CVA 2015,"brain anuerysm" History of Any Multi-Drug Resistant Organisms: None Reported Past Surgical History: Tubal Ligation Past Anesthesia/Blood Transfusion Reactions: No Reported Reaction Past Psychological History: No Psychological Hx Reported Smoking Status: Former smoker Past Alcohol Use History: Occasional Past Drug Use History: None Reported - Past Family History Mother Family Medical History: Congestive Heart Failure (CHF), Diabetes Mellitus, Hypertension Father History Unknown: Yes General Exam - General Exam Comments Initial Comments: NIH of 2, slurred speech Limitations: no limitations General appearance: alert, in no apparent distress Head exam: Present: atraumatic, normocephalic, normal inspection Eye exam: Present: normal appearance, PERRL, EOMI. Absent: scleral icterus, conjunctival injection, periorbital swelling ENT exam: Present: normal exam, mucous membranes moist Neck exam: Present: normal inspection. Absent: tenderness, meningismus, lymphadenopathy Respiratory exam: Present: normal lung sounds bilaterally. Absent: respiratory distress, wheezes, rales, rhonchi, stridor Cardiovascular Exam: Present: regular rate, normal rhythm, normal heart sounds. Absent: systolic murmur, diastolic murmur, rubs, gallop, clicks GI/Abdominal exam: Present: soft, normal bowel sounds. Absent: distended, tenderness, guarding, rebound, rigid Extremities exam: Present: normal inspection, full ROM, normal capillary refill. Absent: tenderness, pedal edema, joint swelling, calf tenderness Back exam: Present: normal inspection Neurological exam: Present: alert, oriented X3, CN II-XII intact Psychiatric exam: Present: normal affect, normal mood Skin exam: Present: warm, dry, intact, normal color. Absent: rash Course Vital Signs 03/29/17 03/29/17 03/29/17 13:16 13:31 13:46 Temperature 97.7 F Pulse Rate 82 Pulse Rate [ 73 71 Right] Respiratory 18 18 Rate Blood Pressure 155/68 Blood Pressure 152/72 149/68 [Right Arm] O2 Sat by Pulse 88 L 98 Oximetry 03/29/17 14:01 Temperature Pulse Rate Pulse Rate [ 72 Right] Respiratory 18 Rate Blood Pressure Blood Pressure 148/70 [Right Arm] O2 Sat by Pulse Oximetry - Reevaluation(s) Reevaluation #1: 03/29/17 14:17 Prior results and ER visits as well as inpatient hospitalization remove reviewed , MRI negative 03/29/17 14:18 Patient did have positive CTA of RCA Reevaluation #2: 03/29/17 14:18 Patient is not a TPA candidate secondary to low NIH EKG Findings - EKG Comments: EKG Findings:: EKG shows normal sinus rhythm rate of 69, AR 142, QRS 104, QTC 475 Medical Decision Making - Medical Decision Making 66 female ER for evaluation regarding slurred speech, history of multiple recent episodes that are similar in the last week. Multiple hospital admissions for TIA continue tear at this time, worse slurred speech, patient admitted for neurological evaluation and observation - Lab Data Result diagrams: 03/29/17 13:25 03/29/17 13:25 Lab Results 03/29/17 03/29/17 03/29/17 Range/Units 13:23 13:25 13:25 WBC 8.5 (3.8-10.6) k/uL RBC 3.65 L (3.80-5.40) m/uL Hgb 12.0 (11.4-16.0) gm/dL Hct 36.0 (34.0-46.0) % MCV 98.4 (80.0-100.0) fL MCH 32.8 (25.0-35.0) pg MCHC 33.3 (31.0-37.0) g/dL RDW 13.4 (11.5-15.5) % Plt Count 327 (150-450) k/uL Neutrophils % 68 % Lymphocytes % 19 % Monocytes % 8 % Eosinophils % 1 % Basophils % 0 % Neutrophils # 5.8 (1.3-7.7) k/uL Lymphocytes # 1.6 (1.0-4.8) k/uL Monocytes # 0.7 (0-1.0) k/uL Eosinophils # 0.1 (0-0.7) k/uL Basophils # 0.0 (0-0.2) k/uL PT (9.0-12.0) sec INR (<1.2) APTT (22.0-30.0) sec Sodium 136 L (137-145) mmol/L Potassium 3.9 (3.5-5.1) mmol/L Chloride 101 (98-107) mmol/L Carbon Dioxide 28 (22-30) mmol/L Anion Gap 7 mmol/L BUN 11 (7-17) mg/dL Creatinine 0.61 (0.52-1.04) mg/dL Est GFR (MDRD) Af Amer >60 (>60 ml/min/1.73 sqM) Est GFR (MDRD) Non-Af >60 (>60 ml/min/1.73 sqM) Glucose 194 H (74-99) mg/dL POC Glucose (mg/dL) 184 H (75-99) mg/dL POC Glu Dye Range Operator Cloth ID Najma Victoria Calcium 8.7 (8.4-10.2) mg/dL Total Bilirubin 0.5 (0.2-1.3) mg/dL AST 38 H (14-36) U/L ALT 51 (9-52) U/L Alkaline Phosphatase 51 (38-126) U/L Total Creatine Kinase (30-135) U/L Total Protein 6.3 (6.3-8.2) g/dL Albumin 3.5 (3.5-5.0) g/dL 03/29/17 03/29/17 Range/Units 13:25 13:25 WBC (3.8-10.6) k/uL RBC (3.80-5.40) m/uL Hgb (11.4-16.0) gm/dL Hct (34.0-46.0) % MCV (80.0-100.0) fL MCH (25.0-35.0) pg MCHC (31.0-37.0) g/dL RDW (11.5-15.5) % Plt Count (150-450) k/uL Neutrophils % % Lymphocytes % % Monocytes % % Eosinophils % % Basophils % % Neutrophils # (1.3-7.7) k/uL Lymphocytes # (1.0-4.8) k/uL Monocytes # (0-1.0) k/uL Eosinophils # (0-0.7) k/uL Basophils # (0-0.2) k/uL PT 10.1 (9.0-12.0) sec INR 1.0 (<1.2) APTT 21.0 L (22.0-30.0) sec Sodium (137-145) mmol/L Potassium (3.5-5.1) mmol/L Chloride (98-107) mmol/L Carbon Dioxide (22-30) mmol/L Anion Gap mmol/L BUN (7-17) mg/dL Creatinine (0.52-1.04) mg/dL Est GFR (MDRD) Af Amer (>60 ml/min/1.73 sqM) Est GFR (MDRD) Non-Af (>60 ml/min/1.73 sqM) Glucose (74-99) mg/dL POC Glucose (mg/dL) (75-99) mg/dL POC Glu Dye Range Operator Cloth ID Calcium (8.4-10.2) mg/dL Total Bilirubin (0.2-1.3) mg/dL AST (14-36) U/L ALT (9-52) U/L Alkaline Phosphatase (38-126) U/L Total Creatine Kinase 74 (30-135) U/L Total Protein (6.3-8.2) g/dL Albumin (3.5-5.0) g/dL - Radiology Data Radiology results: report reviewed (CT brain CT is negative), image reviewed Disposition Clinical Impression: Cerebrovascular accident, Cerebrovascular accident (CVA), TIA (transient ischemic attack) Disposition: ADMITTED IP TO THIS [facility] Condition: Fair Referrals: Jay Galaviz MD [Primary Care Provider] - 1-2 days
[2017-03-29] MEDS: SODIUM CHLORIDE 0.9% 1,000 ML IV SCH ×2 (14:47→23:13)
--- NOTE | 2017-03-29 20:52 | P.CNNES ---
History of Present Illness Consult date: 03/29/17 Reason for Consult: Patient with recurrent TIA symptoms in past one week. History of Present Illness: This patient is a 66-year-old right-handed white female who was recently admitted to [facility] with 2 episodes of recurrent TIA. 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 She was admitted to the hospital and was completely cleared in terms of her symptoms. It was felt she suffered an acute left hemispheric TIA. She did undergo a carotid Doppler study which did reveal right internal carotid artery stenosis of 70%. She was placed on aspirin and discharged home. The next day she was readmitted to hospital if she had recurrence of slurred speech at home and difficulty expressing her thoughts. Since this was a second episode she was readmitted and did undergo an MRI of the brain on 03/26/2017. The MRI revealed chronic small vessel ischemic changes. Was no evidence of acute stroke. Vascular surgery was consulted for further evaluation of her carotid artery disease. According to the patient she was going to follow-up with vascular surgery in 2 weeks for further assessment. The patient apparently was discharged only yesterday from hospital. She went to see her primary care physician earlier today and was doing fine. Shortly after the medical checkup she developed recurrence of slurred speech. She was unable to express her self and apparently was staring and unable to communicate. The episode lasted only minutes in duration. She was brought back to the emergency room today for further reevaluation. She was seen in the ER by Dr. Johnson she had a very low NIH stroke scale and was not a TPA candidate. She was sent for computed tomography scan of the brain which revealed age-related atrophy and small vessel ischemic change. She also underwent CTA angiogram which revealed right ICA stenosis estimated at 90%. There was no significant stenosis of the left internal carotid artery. The patient was admitted to hospital for further reevaluation. She is currently taking aspirin daily. She states her speech is now again much better but still at times she seems to have some word finding difficulties. As she just had an MRI of the brain on 03/26/2017 which was entirely negative for any evidence of acute stroke we would recommend close monitoring of this patient for recurrent symptoms of TIA. We have recommended a vascular surgery consultation for reevaluation of this recurrent episode of slurred speech and possible recurrent TIA. Case was discussed at length with the patient. We will continue to follow her progress very closely during this admission. We'll await further recommendations from vascular surgery. Review of Systems Constitutional: Denies chills, Denies fever Eyes: denies blurred vision, denies pain Ears, nose, mouth and throat: Denies headache, Denies sore throat Cardiovascular: Denies chest pain, Denies shortness of breath Respiratory: Denies cough Gastrointestinal: Denies abdominal pain, Denies diarrhea, Denies nausea, Denies vomiting Genitourinary: Denies dysuria, Denies hematuria Musculoskeletal: Denies myalgias Integumentary: Denies pruritus, Denies rash Neurological: Reports change in mentation, Reports change in speech, Denies numbness, Denies weakness Psychiatric: Denies anxiety, Denies depression Endocrine: Denies fatigue, Denies weight change Past Medical History Past Medical History: CVA/TIA, Hyperlipidemia, Hypertension Additional Past Medical History / Comment(s): CVA 2016,"brain anuerysm" History of Any Multi-Drug Resistant Organisms: None Reported Past Surgical History: Tubal Ligation Past Anesthesia/Blood Transfusion Reactions: No Reported Reaction Past Psychological History: No Psychological Hx Reported Smoking Status: Former smoker Past Alcohol Use History: Occasional Past Drug Use History: None Reported - Past Family History Mother Family Medical History: Congestive Heart Failure (CHF), Diabetes Mellitus, Hypertension Father History Unknown: Yes Medications and Allergies Allergies Allergy/AdvReac Type Severity Reaction Status Date / Time ibuprofen [From Motrin] Allergy Swelling Verified 03/29/17 14:21 Physical Examination - Vital Signs Vital Signs: Vital Signs Temp Pulse Pulse Resp BP BP Pulse Ox 03/29/17 16:02 98.2 F 97 18 165/77 97 03/29/17 15:02 69 18 151/75 98 03/29/17 14:47 64 18 162/91 97 03/29/17 14:42 96.8 F L 70 16 151/78 98 03/29/17 14:15 68 18 147/70 97 03/29/17 14:01 72 18 148/70 03/29/17 13:46 71 149/68 98 03/29/17 13:31 73 18 152/72 03/29/17 13:16 97.7 F 82 18 155/68 88 L Intake and Output 03/29/17 03/29/17 03/29/17 06:59 14:59 22:59 Other: Weight 60.781 kg Patient Weight 03/30/17 06:59 Weight 60.781 kg - Constitutional General appearance: average body habitus, cooperative - EENT EENT: PERRL, mucous membranes moist - Respiratory Respiratory: lungs clear, normal breath sounds - Cardiovascular Cardiovascular: regular rate, normal S1, normal S2 Extremities: no peripheral edema bilaterally - Gastrointestinal Gastrointestinal: normoactive bowel sounds - Integumentary Integumentary: normal - Neurologic Cranial nerve examination: PERRL, EOMI, VFF, V1/V2/V3 grossly intact, face symmetric, tongue midline, intact gag reflex, intact corneal reflex, normal palatal elevation Speech examination: intact Sensorimotor examination: intact Detailed motor examination: grossly full strength in all extremities Motor examination - right side: 5/5: biceps, triceps, wrist flexion, wrist extension, inspector canned food reconditioning, hip flexors, knee extensors, dorsiflexion, toe extension (EHL) , plantarflexion Motor examination - left side: 5/5: biceps, triceps, wrist flexion, wrist extension, inspector canned food reconditioning, hip flexors, knee extensors, dorsiflexion, toe extension (EHL) , plantarflexion Detailed sensory examination: intact Reflex and gait examination: intact Reflexes: 1+: ankle, bicep, knee, tricep - Musculoskeletal Musculoskeletal: no pain - Psychiatric Psychiatric: mood/affect appropriate, cooperative Results - Laboratory Findings CBC and BMP: 03/29/17 13:25 03/29/17 13:25 Abnormal Lab Findings: Abnormal Labs 03/29/17 03/29/17 03/29/17 13:23 13:25 13:25 RBC 3.65 L APTT Sodium 136 L Glucose 194 H POC Glucose (mg/dL) 184 H AST 38 H 03/29/17 13:25 RBC APTT 21.0 L Sodium Glucose POC Glucose (mg/dL) AST Assessment and Plan (1) TIA (transient ischemic attack) Status: Acute Code(s): G45.9 - TRANSIENT CEREBRAL ISCHEMIC ATTACK, UNSPECIFIED (2) Hypertension Status: Acute Code(s): I10 - ESSENTIAL (PRIMARY) HYPERTENSION Plan: This patient is a 66-year-old female who was had multiple admissions to [facility] over the last week with recurrent episodes of TIA. Patient has been having episodes of slurred speech and on initial presentation right arm weakness. She subsequently had admission twice to the hospital with extensive testing that was completed. All of her testing came back negative for any significant findings for recurrent TIA. She was discharged yesterday on aspirin. Apparently she went to see her primary care physician earlier this morning and had a good exam. Shortly thereafter she developed again recurrence of slurred speech. She had difficulty expressing herself. She was brought back to the emergency room for the third time. She underwent a computed tomography scan of the brain as well as a CTA angiogram of the head and neck. Results are as noted above. She is now been readmitted for recurrent TIA. Her neurological examination at this time is nonfocal. Her speech does appear to be clear. She does not make any paraphasic errors. She does not have any evidence of expressive aphasia at this time. She does have known history of right internal carotid artery stenosis which should be reevaluated by vascular surgery. We will consult vascular surgery further recommendations. Patient will be maintained on aspirin daily for secondary stroke prevention. We'll await further recommendations as per vascular surgery. Her overall prognosis at this time remains guarded. Time with Patient: Greater than 30
[2017-03-29] MEDS ORDERED: ATORVASTATIN 80 MG TAB PO SCH (21:00)
[2017-03-30 00:28] VITALS: RESP 16
[2017-03-30 02:11] LABS: Appearance,Urine Clear (Clear); Bilirubin,Urine Negative (Negative); Glucose,Urine (UA) Negative (Negative); Ketones,Urine 1+ (Negative); Leukocyte Esterase,Urine Negative (Negative); Nitrite,Urine Negative (Negative); Protein,Urine Negative (Negative); Specific Gravity,Urine 1.008 (1.001-1.035); UA Billing (MACRO vs. MICRO) CHEM
[2017-03-30 06:53] VITALS: PULSE 83
[2017-03-30] MEDS ORDERED: ASPIRIN 325 MG TAB PO SCH (09:00)
[2017-03-30] MEDS ORDERED: METOPROLOL TARTRATE 25 MG TAB PO SCH (09:00)
[2017-03-30] MEDS ORDERED: LISINOPRIL 10 MG TAB PO SCH (09:15)
--- NOTE | 2017-03-30 09:49 | HP ---
CHIEF COMPLAINT: Difficulty speaking and right upper extremity weakness. HISTORY OF PRESENT ILLNESS: This lady just went home yesterday as she had a left-sided TIA with symptoms. She was seen in the office today and was doing well and shortly thereafter, she developed dysarthria and right upper extremity weakness, once again came to the emergency room. She has a severe left carotid acoustic problem and she was seen by Vascular Surgery and it was planned that she would follow up with them in 2 weeks. REVIEW OF SYSTEMS: She has no other new complaints or problems including headache, chest pain, shortness of breath, ( ) and palpitations, etc. She has had no change in the vision or the hearing. PAST MEDICAL HISTORY, FAMILY HISTORY, AND PERSONAL AND SOCIAL HISTORIES: Unremarkable and noncontributory. She is on: 1. Enalapril 10 mg twice a day. 2. Metoprolol 25 twice a day. 3. Aspirin 81 mg a day. 4. Lipitor 40 once a day. She does not smoke any longer and has not for a year. PHYSICAL EXAM: Blood pressure 130/70, the pulse 64, respirations 14. She is afebrile. GENERAL: She appeared to be well-developed, well-nourished in no acute distress. Skin color is normal. Skin is warm and dry and lymph nodes are not enlarged. Head, ears, eyes, nose, mouth and throat were normal and neck veins are not distended. Thyroid is not enlarged. Chest is clear. Cardiac exam is normal and normal sinus rhythm and no murmurs or extra sounds. The abdomen is soft and nontender without any visceromegaly or masses. Extremities are normal and neurologically, she is having difficulties speaking although she understands and responds appropriately. She has some right upper extremity weakness and otherwise she is intact. IMPRESSION: 1. Left-sided transient ischemic attack. 2. Left carotid occlusive disease. 3. ( ). 4. Hypertension. 5. Chronic obstructive pulmonary disease. PLAN: 1. Bed rest. 2. IV fluids. 3. Frequent monitoring of the vital signs. 4. Reconsult by Vascular Surgery. BRINDA
[2017-03-30 09:55] LABS: Cholesterol 177 mg/dL (<200); HDL Cholesterol 56 mg/dL (40-60); Triglycerides 98 mg/dL (<150)
[2017-03-30] MEDS ORDERED: ACETAMINOPHEN TAB 325 MG TAB PO PRN (10:47)
[2017-03-30 11:24] VITALS: BMI 22.1
[2017-03-30 12:07] VITALS: TEMP 97.7
--- NOTE | 2017-03-30 13:35 | CONS ---
This is a 66 -year-old pleasant female. She is known to me from previous admission. She came with history of slurred speech and right hemiparesis for the last two weeks times two with complete recovery. She had a complete stroke workup to include MRI of the brain, CT angiogram of the carotids and carotid ultrasound. The patient had a CT scan done on admission. Age related changes. No acute bleeding note. CT of the carotid shows the patient has high grade stenosis in the right carotid. Left carotid normal. Mild plaque formation noted. Both vertebrals are patent. The patients speech has improved. She is on antiplatelet therapy. PAST HISTORY: The patient has history of hypertension, hyperlipidemia. PAST SURGICAL HISTORY: History of tubal ligation. On examination, neck is supple. Trachea is central. Chest is clear to auscultation. Central nervous system: Oriented to time and place. Motor functions are normal bilateral. The patient has been seen by neurology. We will discuss with the family and the patient and she has abnormal carotid artery on the left side and most likely symptoms are coming from the left side. We will discuss with neurology and the family. Further recommendations made by discussing with them. BRINDA
--- NOTE | 2017-03-30 13:49 | PN ---
CHIEF COMPLAINT: Left-sided TIA. HISTORY OF PRESENT ILLNESS: This lady is fine today. She is having no problem with speech or difficulty with right upper extremity. PHYSICAL EXAM: Strength is good. Speech is normal. Chest is clear. Cardiac exam is normal. ABDOMEN: Soft, nontender. Extremities are normal. IMPRESSION: 1. Left-sided transient ischemic attack. 2. Hypertension. 3. ( ) 4. Carotid occlusive disease. 5. Generalized atherosclerotic cardiovascular disease. PLAN: The case was discussed with vascular surgery today and they will consult with neurology once again. The problem being that all of her symptoms are coming from left sided circulatory deficiencies and her tight carotid stenosis is on the right. She may either be embolizing or have intracranial vascular disease. BRINDA
[2017-03-30 17:00] VITALS: BP 156/71
--- NOTE | 2017-03-30 18:34 | P.PN ---
Subjective This patient is a 66-year-old female who has had 3 admissions to the [facility] with similar symptoms of right-sided weakness and recurrent aphasia. Her clinical diagnosis on initial presentation was possible left hemispheric TIA. She has undergone extensive workup including carotid Doppler ultrasound, MRI of the brain, CT angiogram of the head and neck, and all of these results have shown no significant findings other than right internal carotid artery stenosis. Her finding on CT angiogram is not consistent with her clinical history. We have reconsult of vascular surgery for their opinion. This patient may require further workup with neurovascular studies and cerebral angiogram with neurosurgical consultation. Case was discussed today with Dr. Houston vascular surgeon. He is recommending the patient be transferred to a tertiary center for further evaluation. Her overall prognosis at this time remains very guarded. Objective - Vital Signs Vital signs: Vital Signs Temp 97.7 F 03/30/17 16:00 Pulse 83 03/30/17 16:00 Resp 16 03/30/17 16:00 BP 156/71 03/30/17 16:00 Pulse Ox 93 L 03/30/17 16:00 Intake & Output 03/29/17 03/30/17 03/30/17 18:59 06:59 18:59 Intake Total 100 200 Output Total 0 800 Balance 100 -800 200 Weight 60.781 kg 56.6 kg 56.6 kg Intake: Oral 100 200 Output: Urine 0 800 Other: Voiding Method Toilet Toilet # Voids 400 1 - Exam Physical examination: PHYSICAL EXAMINATION: Patient is resting comfortably in bed. VITAL SIGNS: Blood pressure is [156/71]. Heart rate is [69]. Respiration is [16] . Temperature is [97.7]. HEENT: Head is atraumatic, neck is supple, there were no carotid bruits. CHEST: Lungs are clear to auscultation and percussion. CARDIAC: S1, S2 normal rate and rhythm. There is no murmur. ABDOMEN: Soft and nontender. Bowel sounds are present. EXTREMITIES: There is no pedal edema. Peripheral pulses are present. Neurological examination: Patient's neurological examination is unchanged from yesterday. She has a nonfocal neurological examination at this time. - Labs CBC & Chem 7: 03/29/17 13:25 03/29/17 13:25 Labs: Abnormal Lab Results - Last 24 Hours (Table) 03/30/17 03/30/17 Range/Units 02:00 05:42 LDL Cholesterol, Calc 101 H (0-99) mg/dL Urine Ketones 1+ H (Negative) Assessment and Plan (1) TIA (transient ischemic attack) Status: Acute Code(s): G45.9 - TRANSIENT CEREBRAL ISCHEMIC ATTACK, UNSPECIFIED (2) Hypertension Status: Acute Code(s): I10 - ESSENTIAL (PRIMARY) HYPERTENSION Plan: This patient is a 66-year-old female who was had multiple admissions to [facility] over the last week with recurrent episodes of TIA. Patient has been having episodes of slurred speech and on initial presentation right arm weakness. She subsequently had admission twice to the hospital with extensive testing that was completed. All of her testing came back negative for any significant findings for recurrent TIA. She was discharged yesterday on aspirin. Apparently she went to see her primary care physician earlier this morning and had a good exam. Shortly thereafter she developed again recurrence of slurred speech. She had difficulty expressing herself. She was brought back to the emergency room for the third time. She underwent a computed tomography scan of the brain as well as a CTA angiogram of the head and neck. Results are as noted above. She is now been readmitted for recurrent TIA. Her neurological examination at this time is nonfocal. Her speech does appear to be clear. She does not make any paraphasic errors. She does not have any evidence of expressive aphasia at this time. She does have known history of right internal carotid artery stenosis which should be reevaluated by vascular surgery. We will consult vascular surgery further recommendations. The patient was seen by vascular surgery today for reevaluation. Dr. Houston vascular surgeon did review all of her studies and is now recommending that she be transferred to a tertiary center for further vascular neurosurgical evaluation of her severe right carotid artery disease and stenosis. Dr. Houston will be contacting [facility] to make arrangements for transfer of this patient for further treatment. Patient will be maintained on aspirin daily for secondary stroke prevention. Her overall prognosis at this time remains very guarded. Apparently patient has been accepted for transfer to tertiary center today.
--- NOTE | 2017-04-01 10:44 | DS ---
CHIEF COMPLAINT: Difficulty speaking and right-sided weakness. HISTORY OF PRESENT ILLNESS AND PHYSICAL EXAM: The details of this ladys history and physical can be found in the initial workup. LABORATORY STUDIES: While she was in the hospital, she had laboratory studies, the details of which can be found in the laboratory section of her chart. COURSE IN HOSPITAL: After admission she was placed on bed rest and started on intravenous fluids and frequent monitoring of her neurologic status and vital signs. Right upper extremity dysesthesias and weakness disappeared and her speech returned to normal. She was seen again by Neurology and Vascular Surgery and it was felt that she should be transferred to tertiary center and this was arranged for the afternoon or evening of the 28. FINAL DIAGNOSES: 1. Left-sided cerebral ischemia with right-sided transient ischemic attack, right upper extremity monoparesis and dysarthria. 2. Hypertension. 3. Atherosclerotic cardiovascular disease. OPERATIONS: None. CONSULTATIONS: Neurology and Vascular Surgery. She is improved. BRINDA
== END 2017-03-30 17:46 | disposition short-term general hospital (02) | DRG 68 ==
LOC: EC 13:00 → 6SEL 14:15
PROVIDERS: ADMIT Family Medicine; ATTEND Family Medicine
DX: I65.21 Occlusion and stenosis of right carotid artery (principal); I10 Essential (primary) hypertension; G83.21 Monoplegia of upper limb affecting right dominant side; E78.5 Hyperlipidemia, unspecified; I25.10 Atherosclerotic heart disease of native coronary artery without angina pectoris; J44.9 Chronic obstructive pulmonary disease, unspecified; R47.1 Dysarthria and anarthria; Z79.82 Long term (current) use of aspirin; Z79.899 Other long term (current) drug therapy; Z86.73 Personal history of transient ischemic attack (TIA), and cerebral infarction without residual deficits; Z87.891 Personal history of nicotine dependence; Z82.49 Family history of ischemic heart disease and other diseases of the circulatory system
CPT/HCPCS: 36415; 70450; 70496; 70498; 71010; 80053; 80061; 81003; 82550; 82553; 84484; 85025; 85610; 85730; 93005

== ENCOUNTER → 2017-11-14 | Outpatient (CLI) | payer MEDICARE, BC | END | disposition home or self-care (01) | LOC: LABWHC1 07:37 | PROVIDERS: ATTEND Psychiatry & Neurology Neurology | DX: G40.209 Localization-related (focal) (partial) symptomatic epilepsy and epileptic syndromes with complex partial seizures, not intractable, without status epilepticus (principal) | CPT/HCPCS: 36415; 80177 ==

== ENCOUNTER → 2018-04-25 | Outpatient (CLI) | payer MEDICARE, BC ==
--- NOTE | 2018-04-26 03:22 | MR ---
EXAMINATION TYPE: MR angio head wo/neck wo/w con DATE OF EXAM: 04/25/2018 COMPARISON: MR angiogram of the brain 10/22/2015. HISTORY: Follow up on known aneurysm, carotid artery stenosis TECHNIQUE: Time of flight images focusing on the [place] were performed without contrast.. 2-D and 3-D postprocessing imaging is performed. MR angiographic images were obtained of the cervical carotid and vertebral arteries. FINDINGS: There is bilateral arterial flow in the vertebral arteries. Left vertebral artery is larger than the right. There is no evidence of vertebral dissection. There is arterial flow in the common i nternal and external carotid arteries bilaterally. There is moderate plaque involving the proximal ri ght internal carotid artery with lumen narrowing of up to 75%. The left internal carotid artery appea rs widely patent. There is no evidence of carotid dissection. There is arterial flow in the anterior middle and posterior cerebral arteries. There is arterial flow in the vertebrobasilar artery system. There is no flow in the proximal right anterior cerebral arter y. The anterior cerebral arteries fill from the left side. There is a 4 mm soni aneurysm of the medi al wall of the supraclinoid left internal carotid artery. There is 3 mm soni aneurysm of the right l ateral wall of the parasellar right internal carotid artery. 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 There is no flow demonstrated in the proximal right anterior cerebral artery which is thrombosed and is a mary nge compared to old exam. This vessel was patent on the old MR scan but had significant luminal diffu se narrowing. There is a 3 mm soni aneurysm on the right lateral wall of the right internal carotid artery in the parasellar segment. This appears unchanged. There is a long 2 cm segment of narrowing of the proximal right internal carotid artery with up to 75 % stenosis.
== END | disposition home or self-care (01) ==
LOC: RADMRIMAIN 15:45
PROVIDERS: ATTEND Psychiatry & Neurology Neurology
DX: I65.21 Occlusion and stenosis of right carotid artery (principal)
CPT/HCPCS: 82565; 70544; 70549; 36415; A9581

== ENCOUNTER → 2019-03-18 | Outpatient (CLI) | payer MEDICARE, BC | END | disposition home or self-care (01) | LOC: LABWHC1 07:33 | PROVIDERS: ATTEND Psychiatry & Neurology Neurology | DX: G40.209 Localization-related (focal) (partial) symptomatic epilepsy and epileptic syndromes with complex partial seizures, not intractable, without status epilepticus (principal) | CPT/HCPCS: 36415; 80177 ==

== ENCOUNTER → 2019-03-21 | Outpatient (CLI) | payer MEDICARE, BC ==
[2019-03-21 16:08] LABS: African American GFR (CKD) >90 (>60 ml/min/1.73 sqM); Blood Urea Nitrogen 19 mg/dL (7-17)
--- NOTE | 2019-03-21 20:00 | CT ---
EXAMINATION TYPE: CT angio neck DATE OF EXAM: 03/21/2019 HISTORY: Carotid stenosis. COMPARISON: CT angiogram 03/29/2017 and prior MR angiogram 04/25/2018 CT DLP: 301 mGycm. Automated Exposure Control for Dose Reduction was Utilized. TECHNIQUE: CTA scan of the neck is performed with IV Contrast, patient injected with 50 mL of Isovue 370, axial images are obtained, coronal and sagittal reformatted images are reviewed. Three-D recons tructed images are created on an independent workstation and reviewed. FINDINGS: Carotid/Vascular Structures: Common carotid arteries are patent. 3 super aortic branch vessels are pr esent, there are atheromatous changes involving the origins of the super aortic vessels and the left and right subclavian arteries, internal and external carotid arteries, vertebral arteries are patent. The right vertebral artery is diminutive. No hemodynamic significant stenosis of the proximal internet network specialist al carotid artery on the left. The right proximal internal carotid artery shows a high-grade stenosis likely 80-90% diameter reduction. Other: Extensive emphysematous changes are present in the upper lobes of the lungs. IMPRESSION: Hemodynamic significant stenosis of the proximal internal carotid artery is again noted.
== END | disposition home or self-care (01) ==
LOC: RADCTMAIN 15:31
PROVIDERS: ATTEND Internal Medicine Interventional Cardiology
DX: I65.29 Occlusion and stenosis of unspecified carotid artery (principal)
CPT/HCPCS: 82565; 84520; 70498; 36415; Q9967

== ENCOUNTER → 2019-04-18 | Outpatient (CLI) | payer MEDICARE, BC ==
[2019-04-18 08:37] LABS: HCT 37.4 % (34.0-46.0); MCH 30.2 pg (25.0-35.0); MCHC 32.1 g/dL (31.0-37.0); MCV 94.2 fL (80.0-100.0); Mean Platelet Volume 7.1; Platelet Count 328 k/uL (150-450); RBC 3.97 m/uL (3.80-5.40); RDW 14.3 % (11.5-15.5); WBC 7.3 k/uL (3.8-10.6)
[2019-04-18 08:44] LABS: Potassium 4.5 mmol/L (3.5-5.1)
== END ==
LOC: LABPAT 07:51
PROVIDERS: ATTEND Internal Medicine Interventional Cardiology
DX: Z01.812 Encounter for preprocedural laboratory examination (principal); I34.0 Nonrheumatic mitral (valve) insufficiency; I25.10 Atherosclerotic heart disease of native coronary artery without angina pectoris
CPT/HCPCS: 36415; 80051; 82565; 84520; 85027

== ENCOUNTER 2019-05-02 08:02 | Inpatient (IN) | payer MEDICARE, BC ==
[2019-04-25 14:57] VITALS: BMI 23.3
[~2019-05-02 08:02] MED LIST: ALPRAZolam 0.25 MG TAB PO PRN; ALPRAZolam 0.5 MG TAB PO PRN; ASPIRIN 325 MG TAB PO STA; CLOPIDOGREL 75 MG TAB PO STA; NITROGLYCERIN SL TABS 0.4 MG TAB SUBLINGUAL PRN
[2019-05-02] MEDS ORDERED: SODIUM CHLORIDE 0.9% 1,000 ML IV ONE (08:25)
[2019-05-02] MEDS ORDERED: HEPARIN SODIUM 1,000 UN/ML (10ML VL) IV ONE (09:53)
[2019-05-02] MEDS ORDERED: ATROPINE SULFATE 0.1 MG/ML 10ML SYRINGE IV PRN (10:42)
[2019-05-02] MEDS ORDERED: RX INFO: IV CONTRAST WAS GIVEN 1 EACH MISC MISCELLANE PRN (10:42)
[2019-05-02] MEDS ORDERED: MAG HYDROX/AL HYDROX/SIMETH 30 ML CUP PO PRN (10:42)
[2019-05-02] MEDS ORDERED: CLOPIDOGREL 75 MG TAB PO ONE (10:43)
[2019-05-02 11:08] LABS: Glucose,Whole Blood 99 mg/dL (75-99)
--- NOTE | 2019-05-02 11:28 | IR ---
EXAMINATION TYPE: IR stent intravas non coronary DATE OF EXAM: 05/02/2019 COMPARISON: NONE HISTORY: Fluoroscopy time. Fluoroscopy was provided to the referring clinician. 15.8 minutes of fluoroscopy provided.
[2019-05-02] MEDS: IPRATROPIUM-ALBUTEROL 3 ML NEB INHALATION SCH ×3 (11:37→19:31)
--- NOTE | 2019-05-02 12:50 | LTR ---
DATE OF SERVICE; 05/02/2019 RE: Carolina Herrera Dear Dr. Galaviz; Ms. Carolina Herrera underwent today successful stenting of the right internal carotid artery with an excellent angiographic results and without any complication. Thank you for allowing us to participate in his care and please do not hesitate to call if you have any question or concern. Sincerely, Grover Tarango MD MMMICA / EDINN: [id number] /
[2019-05-02] MEDS ORDERED: SODIUM CHLORIDE 0.9% 1,000 ML IV SCH (13:00)
--- NOTE | 2019-05-02 18:17 | PCN ---
PROCEDURE NOTE CAROTID STENT PROCEDURE: DATE OF SERVICE: 05/02/2019 PERFORMING PHYSICIAN: Grover Tarango MD, geophysical prospecting permit agent. PROCEDURES PERFORMED: 1. Selective right common and internal carotid artery angiogram. 2. Successful stenting of the right internal carotid artery using 8-6 x 30 mm Xact carotid stent with adjunctive use of distal protection device with an excellent angiographic result and reduction of stenosis from 90% to 0%. 3. Intracranial angiogram. INDICATION: This is a pleasant 68-year-old female patient who was diagnosed recently with critical disease involving the right internal carotid artery confirmed by CTA. 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 She does also have a good landing zone of the filter. Because of that, she was brought today to undergo right internal carotid artery stenting. APPROACH: Right common femoral artery. COMPLICATIONS: None. LEVEL OF SEDATION: Moderate, with sedation length of 66 minutes. PROCEDURE DESCRIPTION: After obtaining informed consent, the patient was brought to the cardiac high density press laborer. The right common femoral artery was cannulated using micropuncture technique. The micropuncture wire passed easily. Then I placed an 11 cm 6-Panamanian sheath in the right common femoral artery. At that point, anticoagulation was initiated using heparin and the patient was given 6000 units of heparin at the beginning of the procedure with ACT monitoring throughout the procedure. Subsequently I did exchange my 11 cm 6-Panamanian sheath for a 90 cm shuttle sheath. The tip of the shuttle sheath was positioned in the distal aortic arch. At that point I did engage the innominate artery using JB2 catheter. Subsequently I did an angiogram which showed the bifurcation of the innominate into right subclavian and right common carotid arteries. After that I did advance an 0.035 Glidewire to the right common carotid artery and subsequently I did slide the JB2 over the wire to the proximal right common carotid artery. I did selective right common and internal carotid artery angiogram which revealed critical disease involving the right internal carotid artery. At that point and after I chose my equipment, which included 8-6 x 30 mm Xact stent, the stent was prepped and I decided to go ahead and advance my shuttle sheath. So the shuttle sheath was advanced over the JB2 and 0.035 [place] Advantage wire to the mid right common carotid artery under fluoroscopic guidance just proximal to the bifurcation. The 0.035 [place] Advantage wire was positioned in the right external iliac artery. After that I did selective right internal carotid artery angiogram. After that I did deploy the 5 protection device in the right internal carotid artery under fluoroscopic guidance. The filter was deployed after the lesion was wired. After that I did predilatation of the lesion using a 4 x 20 mm balloon which was inflated under 8 atmospheres quickly. It was deflated quickly. Subsequently I deployed 8-6 mm x 30 mm Xact carotid stent system, where the stent was again positioned under fluoroscopic guidance and deployed under fluoroscopic guidance. Post dilatation of the stent was performed using 5 x 20 mm balloon which was inflated again quickly under fluoroscopic guidance and deployed quickly to 8 atmospheres. The following angiogram showed excellent angiographic results with reduction of stenosis from 80% to 0%. Subsequently I did selective right intracranial angiogram. At that point I did exchange my shuttle sheath for an 11 cm 6-Panamanian sheath using 0.035 [place] Advantage wire and I did selective right common femoral artery angiogram. The procedure was completed without any complication. POST-PROCEDURE MANAGEMENT: 1. Dual anti-platelet therapy. 2. Risk factor modifications. 3. Monitor the pressure and heart rate in the ICU. 4. Discharge home in the next 24 hours. MMODL / IJN: [id number] /
[2019-05-02] MEDS: levETIRAcetam 500 MG TAB PO SCH (20:24)
[2019-05-02] MEDS ORDERED: ATORVASTATIN 40 MG TAB PO SCH ×2 (21:00)
[2019-05-03 05:05] LABS: Basophils % (A) 1 %; Eosinophils # (A) 0.2 k/uL (0-0.7); Eosinophils % (A) 2 %; HCT 32.3 % (34.0-46.0); HGB 10.6 gm/dL (11.4-16.0); Lymphocytes # (A) 1.6 k/uL (1.0-4.8); Lymphocytes % (A) 20 %; MCH 30.4 pg (25.0-35.0); MCHC 32.8 g/dL (31.0-37.0); MCV 92.7 fL (80.0-100.0); Mean Platelet Volume 7.6; Monocytes # (A) 0.8 k/uL (0-1.0); Monocytes % (A) 10 %; Neutrophils # (A) 5.2 k/uL (1.3-7.7); Neutrophils % (A) 65 %; Platelet Count 324 k/uL (150-450); RBC 3.48 m/uL (3.80-5.40); RDW 14.7 % (11.5-15.5); WBC 8.1 k/uL (3.8-10.6)
[2019-05-03 05:16] LABS: African American GFR (CKD) >90 (>60 ml/min/1.73 sqM); Anion Gap 9 mmol/L; Blood Urea Nitrogen 13 mg/dL (7-17); Calcium 8.8 mg/dL (8.4-10.2); Carbon Dioxide 26 mmol/L (22-30); Chloride 103 mmol/L (98-107); Glucose 104 mg/dL (74-99); Potassium 4.4 mmol/L (3.5-5.1); Sodium 138 mmol/L (137-145)
[2019-05-03] MEDS: levETIRAcetam 500 MG TAB PO SCH (08:03)
[2019-05-03 08:20] VITALS: TEMP 98.1
[2019-05-03] MEDS ORDERED: ASPIRIN 81 MG PO SCH (09:00)
[2019-05-03] MEDS ORDERED: CLOPIDOGREL 75 MG TAB PO SCH (09:00)
[2019-05-03] MEDS ORDERED: ASPIRIN 325 MG TAB PO SCH (09:00)
[2019-05-03] MEDS: IPRATROPIUM-ALBUTEROL 3 ML NEB INHALATION SCH (09:33)
[2019-05-03 09:45] VITALS: BP 133/89; PULSE 96; RESP 12
--- NOTE | 2019-05-03 22:57 | DS ---
DISCHARGE SUMMARY ADMISSION DATE: May 02, 2019 DATE OF DISCHARGE: May 03, 2019 BRIEF HISTORY: This is a pleasant 68-year-old female patient who was admitted to the hospital yesterday and underwent successful stenting of the right internal carotid artery with good angiographic results and without any complication. The patient is going to be discharged home today on dual anti-platelet therapy and statin and I will follow up with the patient in a week in the office. MMODAnny / EDINN: [id number] /
== END 2019-05-03 12:00 | disposition home or self-care (01) | DRG 34 ==
LOC: 2ORMAIN 08:02 → 2SICU 10:33
PROVIDERS: ADMIT Internal Medicine Interventional Cardiology; ATTEND Internal Medicine Interventional Cardiology
PROC: B3131ZZ Fluoroscopy of Right Common Carotid Artery using Low Osmolar Contrast (ICD-10-PCS; 2019-05-02)
PROC: B3161ZZ Fluoroscopy of Right Internal Carotid Artery using Low Osmolar Contrast (ICD-10-PCS; 2019-05-02)
PROC: 037K3DZ Dilation of Right Internal Carotid Artery with Intraluminal Device, Percutaneous Approach (ICD-10-PCS; principal; 2019-05-02 09:00)
DX: I65.21 Occlusion and stenosis of right carotid artery (principal); I71.01 Dissection of thoracic aorta; I10 Essential (primary) hypertension; F17.210 Nicotine dependence, cigarettes, uncomplicated; Z79.82 Long term (current) use of aspirin; Z79.890 Hormone replacement therapy; Z79.899 Other long term (current) drug therapy; I25.10 Atherosclerotic heart disease of native coronary artery without angina pectoris; I34.0 Nonrheumatic mitral (valve) insufficiency; E78.5 Hyperlipidemia, unspecified
CPT/HCPCS: 37215; 80048; 85025; 85347; 94640

== ENCOUNTER 2019-07-22 07:58 | Emergency (ER) | payer MEDICARE, BC ==
[2019-07-22] MEDS ORDERED: OXYMETAZOLINE 0.05% NASL SPRAY 1 SPRAY BOTTLE NASAL STA (08:10)
[2019-07-22 08:20] VITALS: PULSE 63; RESP 20; TEMP 97.2
--- NOTE | 2019-07-22 08:31 | ED ---
ENT HPI - General Chief complaint: ENT Stated complaint: NOSEBLEED Time Seen by Provider: 07/22/19 08:01 Source: patient Mode of arrival: ambulatory Limitations: no limitations - History of Present Illness Initial comments: 69-year-old female presenting to the emergency department today for chief complaint of left nares nosebleed. Patient states since 6:20 AM she was having a nosebleed. She states she was having a large amount of clotting. She states she was concerned due to the length of the nosebleed she apply pressure called a friend and presents emergency department for evaluation. Patient denies any headache dizziness lightheadedness chest pain nausea vomiting or any other associated symptoms. Patient denies bilateral nare bleeding. Remaining ROS (-). Upon arrival patient appears well no signs of acute distress. VS within acceptable limits. - Related Data Home Medications Medication Instructions Recorded Confirmed Atorvastatin [Lipitor] 40 mg PO DAILY 07/24/17 07/22/19 levETIRAcetam [Keppra] 500 mg PO BID 07/24/17 07/22/19 Diltiazem HCl [Cartia Xt] 180 mg PO DAILY 04/25/19 07/22/19 Ipratropium-Albuterol Nebulize 3 ml INHALATION RT-QID 05/02/19 07/22/19 [Duoneb 0.5 mg-3 mg/3 ml Soln] Previous Rx's Medication Instructions Recorded Enalapril [Vasotec] 10 mg PO BID #60 tablet 03/24/17 Clopidogrel [Plavix] 75 mg PO DAILY #90 tab 05/03/19 Allergies Allergy/AdvReac Type Severity Reaction Status Date / Time ibuprofen [From Motrin] Allergy Swelling Verified 07/22/19 09:14 Review of Systems ROS Statement: Those systems with pertinent positive or pertinent negative responses have been documented in the HPI. ROS Other: All systems not noted in ROS Statement are negative. Past Medical History Past Medical History: COPD, CVA/TIA, Hyperlipidemia, Hypertension, Seizure Disorder Additional Past Medical History / Comment(s): TIAs, brain stem aneurysm being monitored, last seizure 2016 History of Any Multi-Drug Resistant Organisms: None Reported Past Surgical History: Heart Catheterization With Stent, Tubal Ligation Past Anesthesia/Blood Transfusion Reactions: No Reported Reaction Past Psychological History: No Psychological Hx Reported Smoking Status: Former smoker Past Alcohol Use History: None Reported Past Drug Use History: None Reported - Past Family History Mother Family Medical History: Congestive Heart Failure (CHF), Diabetes Mellitus, Hypertension Father History Unknown: Yes General Exam - General Exam Comments Initial Comments: General: The patient is awake and alert, in no distress, and does not appear acutely ill. Eye: +3 mm pupils are equal, round and reactive to light, extra-ocular movements are intact. No nystagmus. There is normal conjunctiva bilaterally. No signs of icterus. Ears, nose, mouth and throat: There are moist mucous membranes and no oral lesions. No blood in oropharynx after gurgling water to clear old blood. Large clot removed from left nare, minimal active bleeding. Neck: The neck is supple, there is no tenderness or JVD. Cardiovascular: There is a regular rate and rhythm. No murmur, rub or gallop is appreciated. Respiratory: Lungs are clear to auscultation, respirations are non-labored, breath sounds are equal. No wheezes, stridor, rales, or rhonchi. Musculoskeletal: Normal ROM, no tenderness. Strength 5/5. Sensation intact. Radial pulses equal bilaterally 2+. Neurological: A&O x 3. CN II-XII intact grossly, There are no obvious motor or sensory deficits. Coordination appears grossly intact. Speech is normal. Skin: Skin is warm and dry and no rashes or lesions are noted. Psychiatric: Cooperative, appropriate mood & affect, normal judgment. Limitations: no limitations Course Vital Signs 07/22/19 07/22/19 07/22/19 08:00 08:18 09:20 Temperature 97.6 F 97.2 F L Pulse Rate 60 63 Respiratory 18 20 20 Rate Blood Pressure 146/84 147/71 145/72 O2 Sat by Pulse 95 95 96 Oximetry Medical Decision Making - Medical Decision Making 69 helping a presented for nosebleed. Left knee are. Appears anterior. No bleeding in the posterior oropharynx. Clot removed Afrin applied nasal clamp applied for 15 minutes. Cessation of bleeding. Patient monitored for additional 30 minutes no additional episodes of bleeding. Unable to identify exact source for cautery. Patient appears well VS stable discharged appearing well. Disposition Clinical Impression: Anterior epistaxis Disposition: HOME SELF-CARE Condition: Good Instructions (If sedation given, give patient instructions): Nosebleed (ED) Additional Instructions: Please use medication as discussed. Please follow-up with family doctor in the next 2 days, if nosebleed returns/persistent return to ER. Please return to emergency room if the symptoms increase or worsen or for any other concerns. Is patient prescribed a controlled substance at d/c from ED?: No Referrals: Jay Galaviz MD [Primary Care Provider] - 1-2 days Time of Disposition: 09:13
[2019-07-22 09:21] VITALS: BP 145/72
== END 2019-07-22 09:23 | disposition home or self-care (01) ==
LOC: EC 07:58
DX: R04.0 Epistaxis (principal); E78.5 Hyperlipidemia, unspecified; G40.909 Epilepsy, unspecified, not intractable, without status epilepticus; I10 Essential (primary) hypertension; J44.9 Chronic obstructive pulmonary disease, unspecified; Z79.51 Long term (current) use of inhaled steroids; Z79.899 Other long term (current) drug therapy; Z88.6 Allergy status to analgesic agent; Z87.891 Personal history of nicotine dependence; Z86.73 Personal history of transient ischemic attack (TIA), and cerebral infarction without residual deficits
CPT/HCPCS: 30901; 99283

== ENCOUNTER → 2019-10-07 | Outpatient (CLI) | payer MEDICARE, BC | END | disposition home or self-care (01) | LOC: LABWHC1 07:46 | PROVIDERS: ATTEND Psychiatry & Neurology Neurology | DX: G40.209 Localization-related (focal) (partial) symptomatic epilepsy and epileptic syndromes with complex partial seizures, not intractable, without status epilepticus (principal) | CPT/HCPCS: 36415; 80177 ==

== ENCOUNTER → 2020-05-17 | Outpatient (CLI) | payer MEDICARE, BC | END | disposition home or self-care (01) | LOC: LABWHC1 08:24 | PROVIDERS: ATTEND Psychiatry & Neurology Neurology | DX: G40.209 Localization-related (focal) (partial) symptomatic epilepsy and epileptic syndromes with complex partial seizures, not intractable, without status epilepticus (principal) | CPT/HCPCS: 36415; 80177 ==

== ENCOUNTER → 2021-05-25 | Outpatient (CLI) | payer MEDICARE, BC | END | disposition home or self-care (01) | LOC: LABWHC1 07:54 | PROVIDERS: ATTEND Psychiatry & Neurology Neurology | DX: G40.209 Localization-related (focal) (partial) symptomatic epilepsy and epileptic syndromes with complex partial seizures, not intractable, without status epilepticus (principal) | CPT/HCPCS: 36415; 80177 ==

== ENCOUNTER → 2022-04-12 | Outpatient (CLI) | payer BC, MEDICARE ==
[2022-04-12 14:40] LABS: HGB 11.7 g/dL (12.0-15.0); MCH 29.5 pg (27.0-32.0); MCHC 30.8 g/dL (32.0-37.0); Mean Platelet Volume 11.7 fL (9.5-12.2); NRBC Per 100 WBC 0 /100 WBCS (0.0-0.0); Platelet Count 316 X 10*3/uL (140-440); RBC 3.96 X 10*6/uL (4.10-5.20); RDW 15.8 % (11.5-14.5)
[2022-04-12 14:42] LABS: African American GFR (CKD) 56.8 (60.0-200.0); Anion Gap 10.1 mmol/L (10.00-18.00); Blood Urea Nitrogen 17.2 mg/dL (9.0-27.0); Carbon Dioxide 25.3 mmol/L (20.0-27.5); Potassium 4.4 mmol/L (3.5-5.5)
== END | disposition home or self-care (01) ==
LOC: LABPAT 08:03
PROVIDERS: ATTEND Internal Medicine Interventional Cardiology
DX: Z01.812 Encounter for preprocedural laboratory examination (principal); I50.22 Chronic systolic (congestive) heart failure
CPT/HCPCS: 80051; 82565; 84520; 85027

== ENCOUNTER 2022-04-18 07:57 | Day surgery (SDC) | payer MEDICARE, BC ==
[2022-04-13 12:31] VITALS: BMI 22.8
[~2022-04-18 07:57] MED LIST changes: +ASPIRIN 325 MG TAB PO ONE; -ASPIRIN 325 MG TAB PO STA; +ATORVASTATIN 80 MG TAB PO ONE; -CLOPIDOGREL 75 MG TAB PO STA; +HEPARIN SODIUM,PORCINE 10,000 UNIT in SODIUM CHLORIDE 0.9% 1,000 ML IRRIGATION PRN; +HEPARIN SODIUM,PORCINE 2,500 UNIT in SODIUM CHLORIDE 0.9% 250 ML IRRIGATION PRN; +SODIUM CHLORIDE 0.9% 1,000 ML in EMPTY BAG 1 BAG IV SCH
[2022-04-18] MEDS ORDERED: VERAPAMIL 2.5 MG/ML 2 ML AMP ONE (10:43)
[2022-04-18] MEDS ORDERED: HEPARIN SODIUM 1,000 UN/ML (10ML VL) ONE (10:43)
[2022-04-18] MEDS: MIDAZOLAM 2 MG/2 ML VIAL IV ONE ×2 (10:47→10:53)
[2022-04-18] MEDS ORDERED: LIDOCAINE 1% INJ 10MG/ML (5 ML VIAL-PF) SQ ONE (10:54)
[2022-04-18] MEDS ORDERED: VERAPAMIL SYRINGE (5 MG/10 ML) INTRAARTER ONE (10:56)
[2022-04-18] MEDS ORDERED: MIDAZOLAM 2 MG/2 ML VIAL IV ONE (11:09)
[2022-04-18] MEDS ORDERED: IOPAMIDOL-370 125ML BTL INJ ONE (11:42)
[2022-04-18] MEDS: NITROGLYCERIN 1000MCG/10ML SYRINGE INTRACORON ONE ×2 (11:48→12:13)
[2022-04-18] MEDS: niCARdipine Syringe (1,000 mcg/10 mL) INTRACORON ONE ×2 (11:48→12:14)
[2022-04-18] MEDS ORDERED: FUROSEMIDE 10 MG/ML 4 ML VIAL ONE (12:09)
[2022-04-18] MEDS ORDERED: FUROSEMIDE 10 MG/ML 4 ML VIAL IV ONE (12:12)
[2022-04-18] MEDS ORDERED: IOPAMIDOL-370 100ML BTL INJ ONE (12:15)
[2022-04-18] MEDS ORDERED: CLOPIDOGREL 75 MG TAB ONE (12:16)
[2022-04-18] MEDS ORDERED: MAG HYDROX/AL HYDROX/SIMETH 30 ML CUP PO PRN (12:22)
[2022-04-18] MEDS ORDERED: RX INFO: IV CONTRAST WAS GIVEN 1 EACH MISC MISCELLANE PRN (12:22)
[2022-04-18] MEDS ORDERED: NITROGLYCERIN SL TABS 0.4 MG TAB SUBLINGUAL PRN (12:22)
[2022-04-18] MEDS ORDERED: IPRATROPIUM 0.5 MG/2.5 ML NEBU INHALATION PRN (12:22)
[2022-04-18] MEDS ORDERED: ATROPINE SULFATE 0.1 MG/ML 10ML SYRINGE IV PRN (12:22)
[2022-04-18] MEDS ORDERED: CLOPIDOGREL 75 MG TAB PO ONE (12:22)
[2022-04-18] MEDS ORDERED: ZOLPIDEM 5 MG TAB PO PRN (12:22)
[2022-04-18] MEDS ORDERED: SODIUM CHLORIDE 0.9% 1,000 ML in EMPTY BAG 1 BAG IV SCH (12:30)
--- NOTE | 2022-04-18 12:32 | P.PCN ---
Date of Procedure: 04/18/22 Operative Findings: CARDIAC CATHETERIZATION AND PERCUTANEOUS CORONARY INTERVENTION PERFORMING PHYSICIAN: Grover Tarango MD, [facility] PROCEDURE PERFORMED: 1. Selective right and left coronary angiogram 2. Left heart catheterization 3. Successful stenting of proximal LAD using 3.5 x 12 Xience OUMOU which with an excellent angiographic results 4. Successful stenting of the mid LAD using 3.0 x 23 mm Xience OUMOU with an excellent angiographic results 5. Fractional flow reserve of the left anterior descending artery 6. Intravascular ultrasound IVUS of the LAD INDICATION: This is a 71-year-old known patient with carotid atherosclerosis as well as hypertension and dyslipidemia and smoking was seen in the office recently for further evaluation of shortness of breath. She underwent further evaluation including an echo which revealed cardiomyopathy was EF around 40%. Subsequently she underwent myocardial perfusion imaging stress test which showed reversibility concerning for severe underlying coronary artery disease. In the light of that heart catheterization wasn't 5 COMPLICATION: None APPROACH: Right radial artery LEVEL OF SEDATION: Moderate with the sedation time of 105 minutes PROCEDURE DESCRIPTION: After obtaining an informed consent the patient was brought to the cardiac laboratory manager. The right radial artery was cannulated using micropuncture technique, the micropuncture wire passed easily then I placed a 6-German sheath in the right radial artery. At that point I gave the patient 2 mg of verapamil IV a and 5000 use of heparin IV. Subsequently I did selective right and left coronary angiogram with JR4 and JL 3.5 catheters. Left heart catheterization was performed using the JR4 catheter which across aortic valve. After that I did an FFR of the LAD and subsequently angioplasty of the LAD and also intravascular u ltrasound of the LAD. The procedure was completed without any complication SELECTIVE CORONARY ANGIOGRAM: The right coronary artery: Large caliber vessel and a dominant vessel. The RCA is chronically occluded in the distal portion and fills by collateral from the left coronary system Left main: Calcified was mild disease only. Bifurcates into an LCx and LAD The left circumflex: Large caliber vessel nondominant vessel. The LCx system has mild disease only. Gives rises into a large OM branch which appeared to be angiographically normal. The left anterior descending artery: Large caliber vessel. The proximal LAD right by the bifurcation of the septal paraprofessional aide teacher branch appeared to have calcified lesion in the range of 60%. We did perform an IFR on the LAD and that came in to be at 0.85. The mid and distal LAD appears to have mild disease only. The LAD gives rises into the first diagonal branch which is subtotally occluded and second diagonal branch which has an ostial lesion appeared to be in the range of 50%. HEMODYNAMICS: The LVEDP was 24 mmHg was no significant gradient across aortic valve PCI OF THE LAD: Anticoagulation was initiated using heparin with continuous ACT monitoring. Subsequently after zeroing the Doppler wire and equalizing between the Doppler wire and the guiding catheter which was JL 3.5 guiding catheter we did an IFR and that came in to be ischemic at 0.85. Subsequently I decided to intervene on the LAD. At that point additional heparin was given and subsequently continuous ACT monitoring was performed. I did wire the LAD using a run-through wire and the wire was advanced all the way to the distal portion. I pulled the Doppler wire out. Subsequently balloon angioplasty of the LAD was initially performed using 2.5 x 12 mm balloon. The balloon was inflated under 12 mauricio for 20 seconds. Then after that I did attempt advancing 3.0 x 23 mm stent to the mid LAD but the stent would not cross and for that reason I was able to use guide liner and with guidewire I was able to advance the stent to the mid LAD. The stent was positioned under fluoroscopy guidance and deployed under its nominal pressure. For the proximal LAD I deployed 3.5 x 12 mm stent with about 2 mm overlap between the first and second stents. The second stent was deployed under its nominal pressure. The area of overlap was dilated using 3.25 mm balloon. Subsequently an angiogram was performed and showed what it seems to be haziness involving the mid LAD distal to the stented segment. I wasn't sure that the dissection or normal. I did balloon at using 2.5 x 12 mm balloon. That seems to be slightly better after the balloon. Then I realized that this is likely related to wire bias because we straightened the LAD which is extremely tortuous. Before that I attempted advancing intravascular ultrasound but the ultrasound will not reach the mid LAD but reached the proximal LAD which showed nicely apposed the stent. 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 FFR came in to be ischemic. I did perform successful stenting of the LAD as described above #3 elevated left-sided filling pressure POSTPROCEDURE MANAGEMENT: #1 dual antiplatelet therapy using aspirin and Plavix for at least 6 months #2 aggressive cholesterol control #3 follow-up with the patient
[2022-04-18 13:04] LABS: Basophils # (A) 0.1 k/uL (0-0.2); Basophils % (A) 1 %; Eosinophils # (A) 0.3 k/uL (0-0.7); Eosinophils % (A) 3 %; HCT 39.3 % (34.0-46.0); HGB 12.5 gm/dL (11.4-16.0); Hypochromasia Slight; Lymphocytes # (A) 1.8 k/uL (1.0-4.8); Lymphocytes % (A) 22 %; MCH 30.4 pg (25.0-35.0); MCHC 31.8 g/dL (31.0-37.0); MCV 95.8 fL (80.0-100.0); Mean Platelet Volume 8.4; Monocytes # (A) 0.6 k/uL (0-1.0); Monocytes % (A) 7 %; Neutrophils # (A) 5.2 k/uL (1.3-7.7); Neutrophils % (A) 64 %; Platelet Count 325 k/uL (150-450); RDW 15.4 % (11.5-15.5)
[2022-04-18 13:14] LABS: African American GFR (CKD) 80 (>60 ml/min/1.73 sqM); Calcium 8.9 mg/dL (8.4-10.2); Carbon Dioxide 27 mmol/L (22-30); Chloride 102 mmol/L (98-107); Non-African American GFR(CKD) 70 (>60 ml/min/1.73 sqM)
[2022-04-18 13:15] LABS: Anion Gap 11 mmol/L; Blood Urea Nitrogen 17 mg/dL (7-17); Glucose 102 mg/dL (74-99); Potassium 4.9 mmol/L (3.5-5.1); Sodium 140 mmol/L (137-145)
[2022-04-18] MEDS: SYMBICORT 160-4.5 MCG INHALER INHALATION SCH (20:04)
[2022-04-18] MEDS: lisinopriL 20 MG TAB PO SCH (20:33)
[2022-04-18] MEDS: levETIRAcetam 500 MG TAB PO SCH (20:33)
[2022-04-18] MEDS ORDERED: METOPROLOL TARTRATE 25 MG TAB PO SCH (21:00)
[2022-04-19 07:49] VITALS: BP 113/67; PULSE 69; RESP 17; TEMP 97.8
--- NOTE | 2022-04-19 08:07 | P.DS ---
Providers Attending physician: Grover Tarango Consults: 04/18/22 12:23 Consult Physician Routine Consulting Provider: [facility] Consult Reason/Comments: Post Interventional patient Do you want consulting provider notified?: Already Contacted Primary care physician: Jay Saucedahven [facility] Course: The patient is a 71-year-old female patient was diagnosed recently was cardiomyopathy beach she underwent yesterday heart catheterization and stenting of the LAD. The patient was seen this morning. She is chest pain-free beach she stated that she stated overall better. From the cardiac vascular standpoint of view, the patient can be discharged home on dual antiplatelet therapy. I'll follow-up with the patient next week in the office Plan - Discharge Summary Discharge Rx Participant: Yes New Discharge Prescriptions: Continue Enalapril [Vasotec] 10 mg PO BID #60 tablet levETIRAcetam [Keppra] 500 mg PO BID dilTIAZem HCL [Cartia Xt] 180 mg PO DAILY Clopidogrel [Plavix] 75 mg PO DAILY #90 tab Metoprolol Succinate (ER) [Toprol XL] 50 mg PO DAILY Omeprazole Magnesium [PriLOSEC OTC] 20 mg PO DAILY Aspirin [Adult Low Dose Aspirin EC] 81 mg PO DAILY Atorvastatin [Lipitor] 80 mg PO DAILY Budesonide-Formot 160-4.5 Mcg [Symbicort 160-4.5 Mcg Inhaler] 2 puff INHALATION DIRECTED PRN PRN Reason: Shortness Of Breath Ipratropium Updraft 60-2.5 1 dose INHALATION QID PRN PRN Reason: Shortness Of Breath Discontinued Metoprolol Tartrate [Lopressor] 25 mg PO BID Discharge Medication List Enalapril [Vasotec] 10 mg PO BID #60 tablet 03/24/17 [Rx] levETIRAcetam [Keppra] 500 mg PO BID 07/24/17 [History] dilTIAZem HCL [Cartia Xt] 180 mg PO DAILY 04/25/19 [History] Clopidogrel [Plavix] 75 mg PO DAILY #90 tab 05/03/19 [Rx] Aspirin [Adult Low Dose Aspirin EC] 81 mg PO DAILY 04/13/22 [History] Atorvastatin [Lipitor] 80 mg PO DAILY 04/13/22 [History] Budesonide-Formot 160-4.5 Mcg [Symbicort 160-4.5 Mcg Inhaler] 2 puff INHALATION DIRECTED PRN 04/13/22 [History] Ipratropium Updraft 60-2.5 1 dose INHALATION QID PRN 04/13/22 [History] Metoprolol Succinate (ER) [Toprol XL] 50 mg PO DAILY 04/13/22 [History] Omeprazole Magnesium [PriLOSEC OTC] 20 mg PO DAILY 04/13/22 [History] Follow up Appointment(s)/Referral(s): Grover Tarango MD [STAFF PHYSICIAN] - 04/21/22 8:45 am Patient Instructions/Handouts: Procedural Sedation (ED), Left Heart Catheterization (DC)
[2022-04-19] MEDS: SYMBICORT 160-4.5 MCG INHALER INHALATION SCH (08:23)
[2022-04-19] MEDS: levETIRAcetam 500 MG TAB PO SCH (08:23)
[2022-04-19] MEDS: lisinopriL 20 MG TAB PO SCH (08:23)
[2022-04-19] MEDS ORDERED: CLOPIDOGREL 75 MG TAB PO SCH ×2 (09:00)
[2022-04-19] MEDS ORDERED: ATORVASTATIN 80 MG TAB PO SCH (09:00)
[2022-04-19] MEDS ORDERED: METOPROLOL SUCCINATE (ER) 50 MG TAB.ER.24H PO SCH (09:00)
[2022-04-19] MEDS ORDERED: ASPIRIN 81 MG PO SCH (09:00)
[2022-04-19] MEDS ORDERED: DILTIAZEM CD 180 MG CAP.ER.24H PO SCH (09:00)
== END 2022-04-19 09:35 | disposition home or self-care (01) ==
LOC: CATHCVL 07:57 → 6NMEDSUR 12:18 → CATHCVL 04-19 09:35
PROVIDERS: ATTEND Internal Medicine Interventional Cardiology
DX: I25.10 Atherosclerotic heart disease of native coronary artery without angina pectoris (principal); I50.22 Chronic systolic (congestive) heart failure; Z20.822 Contact with and (suspected) exposure to COVID-19
CPT/HCPCS: 93458; 94640 ×2; 92978; 93799; 80048; 85025; 87635; C9600; C1769 ×4; C1887 ×2; C1894; C1725 ×4; C1753; C1874 ×2; J2250; J1940; J2001; J1644; Q9967 ×2

== ENCOUNTER 2023-03-07 08:33 | Emergency (ER) | payer MEDICARE, BC ==
--- NOTE | 2023-03-07 09:00 | ED ---
General Adult HPI - General Chief complaint: Extremity Problem,Nontraumatic Stated complaint: lt knee swelling Time Seen by Provider: 03/07/23 08:43 Source: patient, RN notes reviewed, old records reviewed Mode of arrival: ambulatory Limitations: no limitations - History of Present Illness Initial comments: 72-year-old female presenting with pain and swelling to the left knee. Symptoms do worsen when the patient is on her feet. She has had some cracking sensation in that knee. No fevers. Denies worsening dyspnea, she has a baseline of COPD and states that she always has mild dyspnea but this is unchanged. No chest pain. She denies specific injury. - Related Data Home Medications Medication Instructions Recorded Confirmed levETIRAcetam [Keppra] 500 mg PO BID 07/24/17 04/18/22 dilTIAZem HCL [Cartia Xt] 180 mg PO DAILY 04/25/19 04/18/22 Aspirin [Adult Low Dose Aspirin EC] 81 mg PO DAILY 04/13/22 04/18/22 Atorvastatin [Lipitor] 80 mg PO DAILY 04/13/22 04/18/22 Budesonide-Formot 160-4.5 Mcg 2 puff INHALATION DIRECTED PRN 04/13/22 04/18/22 [Symbicort 160-4.5 Mcg Inhaler] Ipratropium Updraft 60-2.5 1 dose INHALATION QID PRN 04/13/22 04/18/22 Metoprolol Succinate (ER) [Toprol 50 mg PO DAILY 04/13/22 04/18/22 XL] Omeprazole Magnesium [PriLOSEC OTC] 20 mg PO DAILY 04/13/22 04/18/22 Previous Rx's Medication Instructions Recorded Enalapril [Vasotec] 10 mg PO BID #60 tablet 03/24/17 Clopidogrel [Plavix] 75 mg PO DAILY #90 tab 05/03/19 Allergies Allergy/AdvReac Type Severity Reaction Status Date / Time ibuprofen [From Motrin] Allergy Swelling Verified 03/07/23 08:34 Review of Systems ROS Statement: Those systems with pertinent positive or pertinent negative responses have been documented in the HPI. ROS Other: All systems not noted in ROS Statement are negative. Past Medical History Past Medical History: COPD, CVA/TIA, GERD/Reflux, Hyperlipidemia, Hypertension, Seizure Disorder Additional Past Medical History / Comment(s): TIAs, brain stem aneurysm being monitored, last seizure 2017, Right Carotid Stent. History of Any Multi-Drug Resistant Organisms: None Reported Past Surgical History: Tubal Ligation Additional Past Surgical History / Comment(s): STENT IN RIGHT CAROTID (DR WIGGINS) 05/02/2019 Past Anesthesia/Blood Transfusion Reactions: No Reported Reaction Past Psychological History: No Psychological Hx Reported Smoking Status: Former smoker Past Alcohol Use History: Occasional Past Drug Use History: None Reported - Past Family History Mother Family Medical History: Congestive Heart Failure (CHF), Diabetes Mellitus, Hypertension Father History Unknown: Yes General Exam Limitations: no limitations General appearance: alert, in no apparent distress Head exam: Present: atraumatic, normocephalic Eye exam: Present: normal appearance, PERRL ENT exam: Present: normal exam Neck exam: Present: normal inspection. Absent: tenderness Respiratory exam: Present: decreased breath sounds. Absent: respiratory distress Cardiovascular Exam: Present: regular rate, normal rhythm GI/Abdominal exam: Present: soft. Absent: distended, tenderness, guarding Extremities exam: Present: joint swelling (Mild), other (Distal pulses intact). Absent: pedal edema, calf tenderness ( swelling of the left knee compared to the right, no erythema, no warmth) Neurological exam: Present: alert, oriented X3 Psychiatric exam: Present: normal affect, normal mood Skin exam: Present: warm, dry, intact Course Vital Signs 03/07/23 08:34 Temperature 98.1 F Pulse Rate 68 Respiratory 18 Rate Blood Pressure 157/76 O2 Sat by Pulse 93 L Oximetry Medical Decision Making - Medical Decision Making Was pt. sent in by a medical professional or institution (, PA, PATTERN STORAGE CLERK, urgent care, hospital, or skilled nursing...) When possible be specific @ -No Did you speak to anyone other than the patient for history (EMS, parent, family, police, friend...)? What history was obtained from this source @ -No Did you review nursing and triage notes (agree or disagree)? Why? @ -I reviewed and agree with nursing and triage notes Were old charts reviewed (outside hosp., previous admission, EMS record, old EKG, old radiological studies, urgent care reports/EKG's, skilled nursing records)? Report findings @ -No old charts were reviewed Differential Diagnosis (chest pain, altered mental status, abdominal pain women, abdominal pain men, vaginal bleeding, weakness, fever, dyspnea, syncope, headache, dizziness, GI bleed, back pain, seizure, CVA, palpatations, mental health, musculoskeletal)? @ -[DVT, positive arthritis, bursitis, septic arthritis EKG interpreted by me (3pts min.). @ -As above X-rays interpreted by me (1pt min.). @ Mild suprapatellar and prepatellar soft tissue swelling no fracture dislocation CT interpreted by me (1pt min.). @ -None done U/S interpreted by me (1pt. min.). @ -[Negative for DVT What testing was considered but not performed or refused? (CT, X-rays, U/S, labs)? Why? @ -None What meds were considered but not given or refused? Why? @ -None Did you discuss the management of the patient with other professionals (professionals i.e. , PA, PATTERN STORAGE CLERK, lab, RT, psych nurse, social services director, alarm adjuster, teacher, fiscal officer, immigration case worker)? Give summary @ -No Was smoking cessation discussed for >3mins.? @ -No Was critical care preformed (if so, how long)? @ -No Were there social determinants of health that impacted care today? How? (Homelessness, low income, unemployed, alcoholism, drug addiction, transportation, low edu. Level, literacy, decrease access to med. care, prison, rehab)? @ -No Was there de-escalation of care discussed even if they declined (Discuss DNR or withdrawal of care, Hospice)? DNR status @ -No What co-morbidities impacted this encounter? (DM, HTN, Smoking, COPD, CAD, Cancer, CVA, ARF, Chemo, Hep., AIDS, mental health diagnosis, sleep apnea, morbid obesity)? @ -None Was patient admitted / discharged? Hospital course, mention meds given and route, prescriptions, significant lab abnormalities, going to OR and other pertinent info. @ 72-year-old female with several weeks of left knee swelling with exertion. There is small effusion on exam, no erythema, no warmth distal pulses intact, ultrasound negative for DVT, x-ray negative for fracture dislocation. Patient will rest, elevate, take Motrin for pain. Undiagnosed new problem with uncertain prognosis? @ -No Drug Therapy requiring intensive monitoring for toxicity (Heparin, Nitro, Insulin, Cardizem)? @ -No Were any procedures done? @ -No Diagnosis/symptom? @ -knee pain Acute, or Chronic, or Acute on Chronic? @ Acute Uncomplicated (without systemic symptoms) or Complicated (systemic symptoms)? @ -default Side effects of treatment? @ -No Exacerbation, Progression, or Severe Exacerbation? @ -No Poses a threat to life or bodily function? How? (Chest pain, [place], [place], pneumonia, PE, COPD, DKA, ARF, appy, cholecystitis, CVA, Diverticulitis, Homicidal, Suicidal, threat to staff... and all critical care pts) @ -No Disposition Clinical Impression: Knee pain, acute, Swelling of knee joint, left Disposition: HOME SELF-CARE Condition: Good Instructions (If sedation given, give patient instructions): Knee Bursitis (ED), Swollen Knee Joint (ED) Is patient prescribed a controlled substance at d/c from ED?: No Referrals: Jay Galaviz MD [Primary Care Provider] - 1-2 days Max Ge DO [Doctor of Osteopathic Medicine] - 1-2 days Time of Disposition: 10:39
--- NOTE | 2023-03-07 09:18 | XR ---
EXAMINATION TYPE: XR knee complete LT DATE OF EXAM: 03/07/2023 COMPARISON: NONE HISTORY: Left knee swelling TECHNIQUE: Three views are submitted. FINDINGS: Joint spaces are preserved. Osseous structures are intact. No acute fracture seen. Small suprapate llar bursal fluid collection. Vascular calcification. IMPRESSION: 1. No acute fracture or dislocation. Small suprapatellar bursal fluid collection. Prepatellar soft t issue edema correlate clinically.
--- NOTE | 2023-03-07 10:28 | US ---
EXAMINATION TYPE: US venous doppler duplex LE LT DATE OF EXAM: 03/07/2023 9:54 AM COMPARISON: NONE CLINICAL INDICATION: Female, 72 years old with history of swelling; left leg edema for 2 weeks SIDE PERFORMED: left TECHNIQUE: The lower extremity deep venous system is examined utilizing real time linear array sonog ted with graded compression, doppler sonography and color-flow sonography. VESSELS IMAGED: Common Femoral Vein Deep Femoral Vein Greater Saphenous Vein * Femoral Vein Popliteal Vein Small Saphenous Vein * Proximal Calf Veins (* superficial vessels) Left Leg: no evidence of DVT IMPRESSION: Grayscale, color doppler, spectral doppler imaging performed of the deep veins of the lo wer extremities. There is normal flow, compressibility, vascular waveforms.
[2023-03-07 10:48] VITALS: BP 152/72; PULSE 64; RESP 16; TEMP 98
== END 2023-03-07 10:48 | disposition home or self-care (01) ==
LOC: EC 08:33
DX: M25.462 Effusion, left knee (principal); M25.562 Pain in left knee; I10 Essential (primary) hypertension; J44.9 Chronic obstructive pulmonary disease, unspecified; G40.909 Epilepsy, unspecified, not intractable, without status epilepticus; K21.9 Gastro-esophageal reflux disease without esophagitis; E78.5 Hyperlipidemia, unspecified; Z79.82 Long term (current) use of aspirin; Z79.51 Long term (current) use of inhaled steroids; Z79.899 Other long term (current) drug therapy; Z88.6 Allergy status to analgesic agent; Z87.891 Personal history of nicotine dependence; Z86.73 Personal history of transient ischemic attack (TIA), and cerebral infarction without residual deficits
CPT/HCPCS: 99284